=== PATIENT | female | born 1935 | race Caucasian/White ===

== ENCOUNTER 2017-05-23 17:01 | Inpatient (IN) | payer OTHER, MEDICAID ==
--- NOTE | 2017-05-23 17:22 | DR.GENAD ---
HPI - PCP Primary Care Physician: CHELSEY - HPI Comment HPI Comment: HISTORY BELOW. - Complaint/Symptoms Chief Complaint Doctors Comments: PATIENT HAVE NAUSEA, VOMITING AND GENERALIZE WEANESS AND SOB TIMES 3 DAYS. WORSE TODAY. NO FEVER. DENIES COUGH AND CONGESTION. Chief Complaint:: PT. C/O N/V, WEAKNESS, AND DEHYDRATION X 3 DAYS. PT. ALSO C/O SHORTNESS OF BREATH. DAUGHTER STATES PT. HAS NOT BEEN TAKING HER LASIX LIKE SHE IS SUPPOSED TO. - Nurses notes reviewed Nurses Notes Review: Yes - Source History Provided: Patient, Family Member - Mode of Arrival Mode of Arrival: Ambulatory - Timing Onset of Chief Complaint: 05/20/17 Came on: Suddenly - Duration Duration: Constant Duration: Days - Severity Severity: Moderate PMH - PMH Past Medical History: Yes Past Medical History: Alzheimers, CHF, Coronary Artery Disease, Dementia, Diabetes, GERD, Hypertension, Hypothyroidism Past Medical History Comment: BLEEDING ULCER Past Surgical History: Yes Surgical History: Hysterectomy, Other Past Surgical History Comment: BACK - Family History History of Family Medical Conditions: Yes Family Medical History: Diabetes Mellitus, Hypertension - Social History Does patient currently use any type of tobacco product: No Have you used tobacco products in the last 12 months: No Type of Tobacco Use: None Does any household member use tobacco: No Alcohol Use: None Do you use any recreational Drugs:: No Lives With: Family Lives Where: Home - infectious screening In the last 2 months have you had wt loss of >10#?: NO Have you had fever, night sweats or hemotysis?: No Have you traveled outside the country in the last 6 months?: No Isolation: Standard ROS - Review of Systems Constitutional: Weakness, Fatigue, Loss of Appetite. negative: Chills, Fever Eyes: No Symptoms Reported. negative: Eye Pain, Discharge ENTM: No Symptoms Reported. negative: Ear Pain, Nose Discharge, Nose Congestion , Throat Pain Respiratoy: Short of Breath. negative: Productive Cough, Non-Productive Cough, Wheezing, Hemoptysis Cardiovascular: Chest Pain. negative: Edema Gastrointestinal/Abdominal: Abdominal Pain, Nausea. negative: Constipation, Diarrhea, Vomiting Genitourinary: No Symptoms Reported. negative: Hematuria Neurological: No Symptoms Reported Musculoskeletal: Muscle Pain Integumentary: Dryness Hematologic/Lymphatic: Easy Bruising Endocrine: No Symptoms Reported All Other Systems: Reviewed and Negative PE - Vital Signs Vitals: Temperature 97.5 F Pulse Rate 100 Respiratory Rate 20 Blood Pressure [Left Arm] 136/54 Blood Pressure [Right Arm] 164/74 Blood Pressure 147/88 O2 Sat by Pulse Oximetry 95 - General Limitations: No Limitations General Appearance: Alert - Head Head Exam: Normal Inspection - Eyes Eye exam: Normal Appearance - ENT ENT Exam: Normal External Ear Exam TM/Canal Exam: Bilateral Normal Nose Exam: Normal Nose Exam Throat Exam: Normal Inspection - Neck Neck Exam: Normal Inspection - Chest Chest Inspection: Symmetric Chest Wall Rise - Respiratory Respiratory Exam: Normal Lung Sounds Bilat Respiratory Exam: Bilateral Clear to Auscultation - Cardiovascular Cardiovascular Exam: Regular Rate, Normal Rhythm, Normal Heart Sounds - Abdominal Exam Abdominal Exam: Normal Bowel Sounds, Soft. negative: Tenderness - Extremities Extremities Exam: negative: Calf Tenderness - Back Back Exam: Paraspinal Tenderness - Neurologic Neurological Exam: Alert - Psychiatric Psychiatric Exam: Normal Affect, Normal Mood - Skin Skin Exam: Erythema MDM - Additional Information Additional Information Obtained From: Family - Differential Diagnosis Differential Diagnosis: DEHYDRATION, ELECTOLYTE IMBALANCE, WEAKNESS, CHF Course - Treatment Treatment: SEE ORDERS - Consultation Consultation Comments: DIUSS PATIENT WITH DR. DELGADO, HE WILL ADMIT PATIENT. - Education/Counseling Education/Counseling: Patient Educated On: Diagnosis ROR - Labs Reviewed Laboratory Results Reviewed?: Yes Result Diagrams: 05/26/17 03:40 05/26/17 03:40 Laboratory: WBC 5.8 X10^3/uL (3.6-10.0) 05/23/17 17:25 RBC 4.70 X10^6/uL (3.5-5.4) 05/23/17 17:25 Hgb 13.8 g/dL (12.0-16.0) 05/23/17 17:25 Hct 39.4 % (36.0-47.0) 05/23/17 17:25 MCV 83.9 fL (80.0-100.0) 05/23/17 17:25 MCH 29.3 pg (27.0-34.0) 05/23/17 17:25 MCHC 34.9 g/dL (33.0-35.0) 05/23/17 17:25 RDW 14.2 % (11.6-16.5) 05/23/17 17:25 Plt Count 371 X10^3/uL (150.0-450.0) 05/23/17 17:25 MPV 7.8 fL (7.4-11.0) 05/23/17 17: Neut % 64.4 % (42.0-75.0) 05/23/17 17: Lymph % 26.2 % (21.0-51.0) 05/23/17 17:25 [place] % 8.5 % (0.0-13.0) 05/23/17 17: Eos % 0.5 % (0.9-2.9) L 05/23/17 17:25 Baso % 0.4 % (0.2-1.0) 05/23/17 17: Neut # 3.7 x10^3/uL (2.2-4.8) 05/23/17: Lymph # 1.5 X10^3/uL (1.3-2.9) 05/23/17 17: [place] # 0.5 x10^3/uL (0.3-0.8) 05/23/17 17: Eos # 0.0 x10^3/uL (0.0-0.2) 05/23/17 17: Baso # 0.0 X10^3/uL (0.0-0.1) 05/23/17 17: Absolute Nucleated RBC 0.1 /100WBC 05/23/17 17:25 Sodium 123 mmol/L (136-145) L* 05/23/17 17:25 Corrected Sodium 123 mmol/L (136-145) L 05/23/17 17:25 Potassium 4.0 mmol/L (3.5-5.1) 05/23/17 17:25 Chloride 88 mmol/L (98-107) L 05/23/17 17:25 Carbon Dioxide 22.1 mmol/L (21-32) 05/23/17 17:25 BUN 17 mg/dL (7-18) 05/23/17 17:25 Creatinine 1.03 mg/dL (0.55-1.02) H 05/23/17 17:25 Est GFR (MDRD) Af Amer > 60 (>60) 05/23/17 17:25 Est GFR (MDRD) Non-Af 55 (>60) L 05/23/17 17:25 Glucose 116 mg/dL (65-99) H 05/23/17 17:25 Calcium 8.4 mg/dL (8.5-10.1) L 05/23/17 17:25 Corrected Calcium TNP 05/23/17 17:25 Total Bilirubin 0.80 mg/dL (0.2-1.0) 05/23/17 17:25 AST 48 Units/L (15-37) H 05/23/17 17:25 ALT 51 Units/L (12-78) 05/23/17 17:25 Alkaline Phosphatase 89 Units/L (46-116) 05/23/17 17:25 Total Protein 8.0 g/dL (6.4-8.2) 05/23/17 17:25 Albumin 3.6 g/dL (3.4-5.0) 05/23/17 17:25 Globulin 4.4 g/dL (2.5-4.5) 05/23/17 17:25 Albumin/Globulin Ratio 0.8 Ratio (1.1-2.1) L 05/23/17 17:25 - XRAY XRAY Interpreted by: Radiologist XRAY Findings: REPORT NOTED. - Diagnosis Discharge Problem: Hyponatremia, Weakened patient, Dehydration CHF (congestive heart failure) Qualifiers: Congestive heart failure type: combined Congestive heart failure chronicity: acute on chronic Qualified Code(s): I50.43 - Acute on chronic combined systolic (congestive) and diastolic (congestive) heart failure - Discharge Plan Disposition: ADMITTED INPATIENT Condition: Stable - Follow ups/Referrals - Instructions
[2017-05-23] MEDS: NS 1000 ML 1,000 ML IV SCH (17:31)
[2017-05-23] MEDS ORDERED: ZOFRAN INJ 4 MG VIAL IVP ONE (17:32)
[2017-05-23 17:33] LABS: BASOPHILS % (AUTO) 0.4 % (0.2-1.0); EOSINOPHILS % (AUTO) 0.5 % (0.9-2.9); HEMATOCRIT 39.4 % (36.0-47.0); HEMOGLOBIN 13.8 g/dL (12.0-16.0); LYMPHOCYTES # (AUTO) 1.5 X10^3/uL (1.3-2.9); LYMPHOCYTES % (AUTO) 26.2 % (21.0-51.0); MEAN CORPUSCULAR HEMOGLOBIN 29.3 pg (27.0-34.0); MEAN CORPUSCULAR HGB CONC 34.9 g/dL (33.0-35.0); MEAN CORPUSCULAR VOLUME 83.9 fL (80.0-100.0); MEAN PLATELET VOLUME 7.8 fL (7.4-11.0); MONOCYTES # (AUTO) 0.5 x10^3/uL (0.3-0.8); MONOCYTES % (AUTO) 8.5 % (0.0-13.0); NEUTROPHILS # (AUTO) 3.7 x10^3/uL (2.2-4.8); NEUTROPHILS % (AUTO) 64.4 % (42.0-75.0); PLATELET COUNT 371 X10^3/uL (150.0-450.0); RED CELL DISTRIBUTION WIDTH 14.2 % (11.6-16.5); WHITE BLOOD COUNT 5.8 X10^3/uL (3.6-10.0)
[2017-05-23] MEDS ORDERED: ZOFRAN INJ 4 MG VIAL ONE (17:33)
[2017-05-23 17:42] LABS: BLOOD UREA NITROGEN 17 mg/dL (7-18); CALCIUM 8.4 mg/dL (8.5-10.1); CARBON DIOXIDE 22.1 mmol/L (21-32); CHLORIDE 88 mmol/L (98-107); COR NA(FOR HYPERGLY) 123 mmol/L (136-145); CREATININE 1.03 mg/dL (0.55-1.02); GLUCOSE 116 mg/dL (65-99); eGFR BLACK RACES > 60 (>60); eGFR NON BLACK RACES 55 (>60)
[2017-05-23 17:46] LABS: ALANINE AMINOTRANSFERASE 51 Units/L (12-78); ALBUMIN 3.6 g/dL (3.4-5.0); ALKALINE PHOSPHATASE 89 Units/L (46-116); ASPARTATE AMINO TRANSFERASE 48 Units/L (15-37)
[2017-05-23 17:48] LABS: SODIUM 123 mmol/L (136-145)
--- NOTE | 2017-05-23 19:45 | RAD ---
HISTORY: Weakness Study: Single view of the chest. Comparison: None. Findings: Cardiomegaly with pulmonary edema and small right pleural effusion. No focal consolidations. Osseous structures demonstrate no acute abnormality. IMPRESSION: 1. Cardiomegaly with pulmonary edema and small right pleural effusion. Reported By:
[2017-05-23] MEDS ORDERED: ZOFRAN INJ 4 MG VIAL IVP PRN (20:48)
[2017-05-23] MEDS: PEPCID 20 MG IV PREMIX* 20 MG/50 ML BAG IV SCH (22:54)
[2017-05-23 23:12] LABS: CKMB % 2.3 % (<4); CREATINE KINASE MB 1.4 ng/mL (0-4.0); TROPONIN I 0.06 ng/mL (0-1.5)
[2017-05-24 05:53] LABS: ALANINE AMINOTRANSFERASE 38 Units/L (12-78); ALKALINE PHOSPHATASE 70 Units/L (46-116); ASPARTATE AMINO TRANSFERASE 37 Units/L (15-37); BLOOD UREA NITROGEN 16 mg/dL (7-18); CALCIUM 7.9 mg/dL (8.5-10.1); CARBON DIOXIDE 21.8 mmol/L (21-32); CHLORIDE 93 mmol/L (98-107); COR CA(FOR HYPOALB) 8.7 mg/dL (8.5-10.1); CREATININE 0.98 mg/dL (0.55-1.02); GLUCOSE 86 mg/dL (65-99); SODIUM 126 mmol/L (136-145); TOTAL PROTEIN 6.8 g/dL (6.4-8.2); eGFR BLACK RACES > 60 (>60); eGFR NON BLACK RACES 58 (>60)
[2017-05-24] MEDS: NS 1000 ML 1,000 ML IV SCH ×3 (06:04→21:25)
[2017-05-24 06:18] LABS: BASOPHILS % (AUTO) 0.4 % (0.2-1.0); EOSINOPHILS % (AUTO) 0.9 % (0.9-2.9); HEMATOCRIT 35.5 % (36.0-47.0); HEMOGLOBIN 12.2 g/dL (12.0-16.0); LYMPHOCYTES # (AUTO) 1.5 X10^3/uL (1.3-2.9); LYMPHOCYTES % (AUTO) 26.9 % (21.0-51.0); MEAN CORPUSCULAR HEMOGLOBIN 29.1 pg (27.0-34.0); MEAN CORPUSCULAR HGB CONC 34.5 g/dL (33.0-35.0); MEAN CORPUSCULAR VOLUME 84.5 fL (80.0-100.0); MEAN PLATELET VOLUME 8.7 fL (7.4-11.0); MONOCYTES # (AUTO) 0.5 x10^3/uL (0.3-0.8); MONOCYTES % (AUTO) 8.6 % (0.0-13.0); NEUTROPHILS # (AUTO) 3.5 x10^3/uL (2.2-4.8); NEUTROPHILS % (AUTO) 63.2 % (42.0-75.0); PLATELET COUNT 300 X10^3/uL (150.0-450.0); RED BLOOD COUNT 4.21 X10^6/uL (3.5-5.4); RED CELL DISTRIBUTION WIDTH 14.5 % (11.6-16.5); WHITE BLOOD COUNT 5.5 X10^3/uL (3.6-10.0)
[2017-05-24 06:30] LABS: CKMB % 2.3 % (<4); CREATINE KINASE MB 1.5 ng/mL (0-4.0); TROPONIN I 0.06 ng/mL (0-1.5)
[2017-05-24] MEDS: PEPCID 20 MG IV PREMIX* 20 MG/50 ML BAG IV SCH (08:41)
[2017-05-24] MEDS ORDERED: ALPRAZOLAM 0.25 MG PO PRN (11:46)
[2017-05-24] MEDS ORDERED: LASIX PO SCH (12:00)
[2017-05-24] MEDS: LASIX IVP SCH ×2 (14:56→21:24)
[2017-05-24] MEDS: ECOTRIN TAB 325 MG PO SCH (14:56)
[2017-05-24] MEDS: LOPRESSOR TAB 25 MG PO SCH ×2 (14:56→21:24)
[2017-05-24] MEDS ORDERED: ULTRAM PO PRN (19:37)
[2017-05-24] MEDS: XANAX PO PRN (21:23)
[2017-05-25] MEDS: NS 1000 ML 1,000 ML IV SCH (05:59)
[2017-05-25 06:13] LABS: BASOPHILS % (AUTO) 0.3 % (0.2-1.0); EOSINOPHILS % (AUTO) 1.1 % (0.9-2.9); HEMATOCRIT 36.7 % (36.0-47.0); HEMOGLOBIN 12.6 g/dL (12.0-16.0); LYMPHOCYTES # (AUTO) 1.2 X10^3/uL (1.3-2.9); MEAN CORPUSCULAR HEMOGLOBIN 29.1 pg (27.0-34.0); MEAN CORPUSCULAR HGB CONC 34.2 g/dL (33.0-35.0); MEAN PLATELET VOLUME 8.5 fL (7.4-11.0); MONOCYTES # (AUTO) 0.4 x10^3/uL (0.3-0.8); MONOCYTES % (AUTO) 10.1 % (0.0-13.0); NEUTROPHILS # (AUTO) 2.7 x10^3/uL (2.2-4.8); NEUTROPHILS % (AUTO) 61.5 % (42.0-75.0); PLATELET COUNT 292 X10^3/uL (150.0-450.0); RED BLOOD COUNT 4.31 X10^6/uL (3.5-5.4); RED CELL DISTRIBUTION WIDTH 14.2 % (11.6-16.5); WHITE BLOOD COUNT 4.4 X10^3/uL (3.6-10.0)
[2017-05-25 06:37] LABS: ALANINE AMINOTRANSFERASE 38 Units/L (12-78); ALBUMIN 3.1 g/dL (3.4-5.0); ALKALINE PHOSPHATASE 73 Units/L (46-116); ASPARTATE AMINO TRANSFERASE 33 Units/L (15-37); BLOOD UREA NITROGEN 15 mg/dL (7-18); CALCIUM 7.9 mg/dL (8.5-10.1); CARBON DIOXIDE 24.9 mmol/L (21-32); CHLORIDE 99 mmol/L (98-107); COR CA(FOR HYPOALB) 8.6 mg/dL (8.5-10.1); CREATININE 1.05 mg/dL (0.55-1.02); GLUCOSE 91 mg/dL (65-99); SODIUM 134 mmol/L (136-145); TOTAL PROTEIN 6.9 g/dL (6.4-8.2); eGFR BLACK RACES > 60 (>60); eGFR NON BLACK RACES 53 (>60)
[2017-05-25 08:31] VITALS: BMI 30.6
[2017-05-25] MEDS: LOPRESSOR TAB 25 MG PO SCH ×2 (08:46→20:35)
[2017-05-25] MEDS: ECOTRIN TAB 325 MG PO SCH (08:46)
[2017-05-25] MEDS: LASIX IVP SCH ×2 (08:47→20:34)
[2017-05-25] MEDS: PEPCID 20 MG IV PREMIX* 20 MG/50 ML BAG IV SCH (08:47)
--- NOTE | 2017-05-25 12:16 | PCM.PROG ---
Progress Note - Progress Note for Day of Date: 05/25/17 - Subjective Subjective: Patient is an 81yo female patient of ours who was admitted for hyponatremia, dehydration, generalized weakness, and CHF. Upon rounds, patient is lying in bed with eyes open. Patient complains of weakness upon standing and shortness of breath. Wheezing noted on auscultation. Patients family is at bedside. Family states that prior to admission, patient had nausea, vomiting, and confusion. Vitals this am 97.6, 96, 20, 92%, 127/71. Labs within normal limits with exception of SODIUM 134, CREATININE 1.05, GFR 53, CALCIUM 7.9, ALBUMIN 3.1. We will discontinue Lasix and heplock fluids. We will also check an ECHO and repeat labs and xray in am. - Past Medical Family Social History Allergies: Allergies acetaminophen [From Darvocet-N] Allergy (Verified 05/24/17 11:56) codeine Allergy (Verified 05/24/17 11:56) hydrocodone [From Lorcet (hydrocodone)] Allergy (Verified 05/24/17 11:56) oxycodone [From Percocet] Allergy (Verified 05/24/17 11:56) propoxyphene [From Darvocet-N] Allergy (Verified 05/24/17 11:56) - Review of Systems ROS: No change since H&P - Vital Signs and I&O's Vital Signs: Temperature 97.6 F Pulse Rate [Left Brachial] 96 Pulse Rate [Left Radial] 71 Respiratory Rate 20 Blood Pressure [Left Arm] 127/71 O2 Sat by Pulse Oximetry 92 Intake and Output: Intake & Output 05/23/17 05/24/17 05/25/17 05/26/17 11:59 11:59 11:59 11:59 Intake Total 1500 800 Output Total 200 2400 Balance 1300 -1600 - Physical Exam Oriented: Normal. negative: Time, Person, Place, Not Oriented, Unable to test, Other Eyes: Normal. negative: Blurred Vision, Diplopia, Discharge, Pain, Redness, Photophobia, Other Ear: Normal. negative: Right, Left, Swelling, Ecchymosis, Hemotypanum, Abrasion , Laceration Nose: Normal Throat: Normal Respiratory: Wheezes Cardiovascular: Normal : Normal. negative: Dysuria, Hematuria, Frequency, Discharge, Testicular Pain , Bleeding, , Other Auscultation: Bowel Sounds: Normal. negative: Bruit, Absent, Increased, Decreased, High Pitched, Other Tenderness: Normal. negative: Diffuse, RUQ, RLQ, LUQ, LLQ, Epigastric, Periumbilical, Suprapubic, Mild, Moderate, Severe, Rebound, Guarding, Rigidity, Other Skin: Normal. negative: Decreased Turgur, Rash, Papular, Macular, Maculopapular , Vesicular, Pustular, Petechial, Red, Tender, Hot, Diaphoresis, Wound, Bruising , Ecchymosis, Other Musculoskeletal: Instability Psychiatric: Normal. negative: Anxiety, Depression, Agitation, Other Mood Description: Calm. negative: Angry, Apathetic, Depressed, Fearful, Flat, Happy, Hostile, Sad, Suspicious, Withdrawn, Anxious, Appropriate, Labile Affect: Normal. negative: Angry, Anxious, Depressed, Flat, Hysterical, Quiet, Violent Speech Pattern: Clear, Appropriate - Laboratory and Diagnostics Result Diagrams: 05/25/17 03:37 05/25/17 03:37 Labs: Laboratory WBC 4.4 X10^3/uL (3.6-10.0) 05/25/17 03:37 RBC 4.31 X10^6/uL (3.5-5.4) 05/25/17 03:37 Hgb 12.6 g/dL (12.0-16.0) 05/25/17 03:37 Hct 36.7 % (36.0-47.0) 05/25/17 03:37 MCV 85.0 fL (80.0-100.0) 05/25/17 03:37 MCH 29.1 pg (27.0-34.0) 05/25/17 03:37 MCHC 34.2 g/dL (33.0-35.0) 05/25/17 03:37 RDW 14.2 % (11.6-16.5) 05/25/17 03:37 Plt Count 292 X10^3/uL (150.0-450.0) 05/25/17 03:37 MPV 8.5 fL (7.4-11.0) 05/25/17 03:37 Neut % 61.5 % (42.0-75.0) 05/25/17 03:37 Lymph % 27.0 % (21.0-51.0) 05/25/17 03:37 [place] % 10.1 % (0.0-13.0) 05/25/17 03:37 Eos % 1.1 % (0.9-2.9) 05/25/17 03:37 Baso % 0.3 % (0.2-1.0) 05/25/17 03:37 Neut # 2.7 x10^3/uL (2.2-4.8) 05/25/17 03:37 Lymph # 1.2 X10^3/uL (1.3-2.9) L 05/25/17 03:37 [place] # 0.4 x10^3/uL (0.3-0.8) 05/25/17 03:37 Eos # 0.0 x10^3/uL (0.0-0.2) 05/25/17 03:37 Baso # 0.0 X10^3/uL (0.0-0.1) 05/25/17 03:37 Absolute Nucleated RBC 0.6 /100WBC 05/25/17 03:37 Sodium 134 mmol/L (136-145) L 05/25/17 03:37 Corrected Sodium TNP 05/25/17 03:37 Potassium 3.6 mmol/L (3.5-5.1) 05/25/17 03:37 Chloride 99 mmol/L (98-107) 05/25/17 03:37 Carbon Dioxide 24.9 mmol/L (21-32) 05/25/17 03:37 BUN 15 mg/dL (7-18) 05/25/17 03:37 Creatinine 1.05 mg/dL (0.55-1.02) H 05/25/17 03:37 Est GFR (MDRD) Af Amer > 60 (>60) 05/25/17 03:37 Est GFR (MDRD) Non-Af 53 (>60) L 05/25/17 03:37 Glucose 91 mg/dL (65-99) 05/25/17 03:37 Calcium 7.9 mg/dL (8.5-10.1) L 05/25/17 03:37 Corrected Calcium 8.6 mg/dL (8.5-10.1) 05/25/17 03:37 Total Bilirubin 0.50 mg/dL (0.2-1.0) 05/25/17 03:37 AST 33 Units/L (15-37) 05/25/17 03:37 ALT 38 Units/L (12-78) 05/25/17 03:37 Alkaline Phosphatase 73 Units/L (46-116) 05/25/17 03:37 Creatine Kinase 64 Units/L (26-192) 05/24/17 04:00 CK-MB (CK-2) 1.5 ng/mL (0-4.0) 05/24/17 04:00 CK/CKMB % Calc 2.3 % (<4) 05/24/17 04:00 Troponin I 0.06 ng/mL (0-1.5) 05/24/17 04:00 Total Protein 6.9 g/dL (6.4-8.2) 05/25/17 03:37 Albumin 3.1 g/dL (3.4-5.0) L 05/25/17 03:37 Globulin 3.8 g/dL (2.5-4.5) 05/25/17 03:37 Albumin/Globulin Ratio 0.8 Ratio (1.1-2.1) L 05/25/17 03:37 - Plan (1) Hyponatremia Status: Acute Plan: CHECK LABS IN AM, CONTINUE TO MONITOR (2) CHF (congestive heart failure) Status: Acute Qualifiers: Congestive heart failure type: unspecified congestive heart failure type Congestive heart failure chronicity: unspecified congestive heart failure chronicity Qualified Code(s): I50.9 - Heart failure, unspecified Plan: CHECK LABS, CHEST XRAY, ECHO, CONTINUE TO MONITOR, HEPLOCK FLUIDS (3) Weakened patient Status: Acute Plan: CONTINUE TO MONITOR (4) Esophageal reflux Status: Chronic Qualifiers: Esophagitis presence: E Plan: CONTINUE PEPCID, CONTINUE TO MONITOR (5) Essential hypertension, benign Status: Chronic Plan: CONTINUE LOPRESSOR, CONTINUE TO MONITOR (6) LAKESHA (generalized anxiety disorder) Status: Chronic Plan: CONTINUE ALPRAZOLAM, CONTINUE TO MONITOR
[2017-05-25] MEDS: XANAX PO PRN (20:35)
[2017-05-26 05:48] LABS: BASOPHILS % (AUTO) 0.8 % (0.2-1.0); EOSINOPHILS # (AUTO) 0.1 x10^3/uL (0.0-0.2); EOSINOPHILS % (AUTO) 2.1 % (0.9-2.9); HEMATOCRIT 37.4 % (36.0-47.0); HEMOGLOBIN 12.7 g/dL (12.0-16.0); LYMPHOCYTES # (AUTO) 1.6 X10^3/uL (1.3-2.9); LYMPHOCYTES % (AUTO) 34.6 % (21.0-51.0); MEAN CORPUSCULAR HEMOGLOBIN 29.1 pg (27.0-34.0); MEAN CORPUSCULAR VOLUME 85.6 fL (80.0-100.0); MEAN PLATELET VOLUME 8.3 fL (7.4-11.0); MONOCYTES # (AUTO) 0.4 x10^3/uL (0.3-0.8); MONOCYTES % (AUTO) 9.5 % (0.0-13.0); NEUTROPHILS # (AUTO) 2.5 x10^3/uL (2.2-4.8); PLATELET COUNT 315 X10^3/uL (150.0-450.0); RED BLOOD COUNT 4.36 X10^6/uL (3.5-5.4); RED CELL DISTRIBUTION WIDTH 14.5 % (11.6-16.5); WHITE BLOOD COUNT 4.7 X10^3/uL (3.6-10.0)
[2017-05-26 06:01] LABS: ALANINE AMINOTRANSFERASE 45 Units/L (12-78); ALBUMIN 3.1 g/dL (3.4-5.0); ALKALINE PHOSPHATASE 73 Units/L (46-116); ASPARTATE AMINO TRANSFERASE 41 Units/L (15-37); BLOOD UREA NITROGEN 17 mg/dL (7-18); CALCIUM 7.9 mg/dL (8.5-10.1); CARBON DIOXIDE 26.3 mmol/L (21-32); CHLORIDE 99 mmol/L (98-107); COR CA(FOR HYPOALB) 8.6 mg/dL (8.5-10.1); CREATININE 1.16 mg/dL (0.55-1.02); GLUCOSE 101 mg/dL (65-99); SODIUM 135 mmol/L (136-145); TOTAL PROTEIN 7.1 g/dL (6.4-8.2); eGFR BLACK RACES 58 (>60); eGFR NON BLACK RACES 48 (>60)
[2017-05-26] MEDS ORDERED: POTASSIUM CHLORIDE LIQ 20 MEQ UDC PO PRN (06:25)
[2017-05-26] MEDS ORDERED: K-RIDER 10 MEQ/NS 100 ML 10 MEQ/100 ML BAG IV PRN (06:25)
[2017-05-26] MEDS ORDERED: K-LYTE EFFERVESCENT PO PRN (06:25)
[2017-05-26] MEDS ORDERED: K-DUR TAB 20 MEQ PO PRN (06:25)
--- NOTE | 2017-05-26 06:42 | RAD ---
HISTORY: CHF, shortness of breath Study: Single-view chest, done portably Comparison: May 23, 2017 Findings: The trachea is midline. There is cardiomegaly with pulmonary vascular congestion and signs of CHF. T hese findings have increased slightly compared to the prior study. Also increased is atelectasis, in filtrate and or pleural fluid in the right lung base. Osseous structures are intact. IMPRESSION: Increasing CHF with increasing atelectasis, infiltrate or pleural fluid in the right lung base. Reported By:
[2017-05-26] MEDS: ECOTRIN TAB 325 MG PO SCH (08:31)
[2017-05-26] MEDS: LOPRESSOR TAB 25 MG PO SCH (08:31)
[2017-05-26 13:00] VITALS: BP 112/60
--- NOTE | 2017-05-26 14:48 | DR.CARTERD ---
- Discharge Summary for: Discharge Summary for Date of:: 05/26/17 - Admission Date Date of Admission: 05/23/17 - Admission Diagnoses Admission Diagnosis: (1) Hyponatremia (2) CHF (congestive heart failure) (3) Weakened patient (4) Esophageal reflux (5) Essential hypertension, benign (6) LAKESHA (generalized anxiety disorder) - Discharge Date Discharge Date: 05/26/17 - Discharge Diagnoses Discharge Diagnosis: (1) Hyponatremia (2) CHF (congestive heart failure) (3) Weakened patient (4) Esophageal reflux (5) Essential hypertension, benign (6) LAKESHA (generalized anxiety disorder) - Hospital Course Hospital Course: IS AN 81 YEAR OLD PATIENT OF OURS WHO PRESENTED TO THE ER WITH COMPLAINTS OF GENERLIZED WEAKNESS, SHORTNESS OF BREATH, AND NAUSEA/VOMITING. PATIENT STATED THAT CONDITION HAD PROGRESSIVELY WORSENED 2-3 DAYS PRIOR TO PRESENTING TO ER. PATIENT WAS EXAMINED IN ER AND LABS AND X-RAYS WERE OBTAINED. LABS REPORTED SODIUM 123, CHLORIDE 88, CREATININE 1.03, GFR 55. CHEST XRAY REPORTED PULMONARY EDEMA AND SMALL RIGHT PLEURAL EFFUSION. PATIENT WAS ADMITTED FOR FURTHER EVALUATION AND TREATMENT. WE STARTED PATIENT ON IVF, ZOFRAN, AND CONTINUED PATIENTS CURRENT HOME MEDICATIONS. OVER COURSE OF STAY, PATIENTS SODIUM IMPROVED FOR 123 TO 135 BY DISCHARGE. CREATININE IMPROVED FROM 1.03 TO 0.98, GFR FROM 55 TO 48. CARDIAC PROFILE AND EKGS WERE ALL REPORTED WNL. PATIENT STATED THAT SHE FELT MUCH BETTER OVERALL AND WAS READY TO BE DISCHARGED HOME. PATIENT EXPRESSED SOME SHORTNESS OF BREATH ON EXERTION AND WISHED TO BE EVALUATED FOR HOME OXYGEN THERAPY. WE PLANNED FOR DISHCARGE. WE WILL DISCONTINUE PATIENTS HOME MEDICATION LASIX AND WILL START ON DYAZIDE 1 CAPSULE DAILY AND HAVE PATIENT FOLLOW UP IN OFFICE NEXT WEEK. WE PLANNED FOR DISCHARGE. INSTRUCTIONS FOR FOLLOW-UP AND MEDICATION GIVEN TO PATIENT AND DAUGHTER. BOTH VERBALIZED UNDERSTANDING. PATIENT DISCHARGED HOME WITH FAMILY IN STABLE CONDITION. - Discharge Medications Discharge Medications: Aspirin EC [ECOTRIN 325 MG *] 325 mg PO DAILY 05/23/17 [History] Triamterene & Hydrochlorothiaz [Maxzide 37.5/25 mg] 1 cap PO QAM #30 cap [Rx]
== END 2017-05-26 13:45 | disposition home or self-care (01) | DRG 641 ==
LOC: ER 17:12 → MED/SURG 18:53
PROVIDERS: ADMIT Internal Medicine; ATTEND Internal Medicine
DX: E87.1 Hypo-osmolality and hyponatremia (principal); I50.9 Heart failure, unspecified; E86.0 Dehydration; R53.1 Weakness; R06.02 Shortness of breath; K21.9 Gastro-esophageal reflux disease without esophagitis; I10 Essential (primary) hypertension; F41.8 Other specified anxiety disorders; M62.81 Muscle weakness (generalized)
CPT/HCPCS: 36415; 71010; 80053; 82550; 82553; 84484; 85025; 93005; 93306; 94760; 96365; 96367; 96374; 99221; 99231; 99284; A4222; S0028; J1940; J2405

== ENCOUNTER 2017-06-14 13:24 | Inpatient (IN) | payer OTHER, MEDICAID ==
[2017-06-14] MEDS: NS 1000 ML 1,000 ML IV SCH (16:45)
[2017-06-14 17:07] LABS: EOSINOPHILS % (AUTO) 0.6 % (0.9-2.9); HEMOGLOBIN 13.2 g/dL (12.0-16.0); LYMPHOCYTES # (AUTO) 1.1 X10^3/uL (1.3-2.9); LYMPHOCYTES % (AUTO) 26.6 % (21.0-51.0); MEAN CORPUSCULAR HEMOGLOBIN 28.6 pg (27.0-34.0); MEAN CORPUSCULAR HGB CONC 34.7 g/dL (33.0-35.0); MEAN CORPUSCULAR VOLUME 82.5 fL (80.0-100.0); MEAN PLATELET VOLUME 8.6 fL (7.4-11.0); MONOCYTES # (AUTO) 0.4 x10^3/uL (0.3-0.8); MONOCYTES % (AUTO) 8.8 % (0.0-13.0); NEUTROPHILS # (AUTO) 2.6 x10^3/uL (2.2-4.8); PLATELET COUNT 303 X10^3/uL (150.0-450.0); RED BLOOD COUNT 4.61 X10^6/uL (3.5-5.4); RED CELL DISTRIBUTION WIDTH 14.3 % (11.6-16.5); WHITE BLOOD COUNT 4.2 X10^3/uL (3.6-10.0)
[2017-06-14 17:34] LABS: ALANINE AMINOTRANSFERASE 43 Units/L (12-78); ALBUMIN 3.4 g/dL (3.4-5.0); ALKALINE PHOSPHATASE 86 Units/L (46-116); ASPARTATE AMINO TRANSFERASE 51 Units/L (15-37); BLOOD UREA NITROGEN 24 mg/dL (7-18); CALCIUM 8.3 mg/dL (8.5-10.1); CARBON DIOXIDE 27.4 mmol/L (21-32); CHLORIDE 85 mmol/L (98-107); CREATININE 1.17 mg/dL (0.55-1.02); GLUCOSE 99 mg/dL (65-99); TOTAL PROTEIN 7.7 g/dL (6.4-8.2); eGFR BLACK RACES 57 (>60); eGFR NON BLACK RACES 47 (>60)
[2017-06-14 17:36] LABS: SODIUM 119 mmol/L (136-145)
[2017-06-14 17:49] VITALS: BMI 28.0
--- NOTE | 2017-06-14 18:17 | DR.UPDATE ---
H&P Update History and Physical Update: WAS SEEN IN THE OFFICE TODAY FOR A FOLLOW-UP ON LABS. SHE WAS NOTED WITH COMPLAINTS OF HEADACHE, WEAKNESS, AND ALTERED MENTAL STATUS. SODIUM LEVEL WAS REPORTED AT A CRITICAL LEVEL OF 120. WE ADMITTED PATIENT FOR FURTHER TREATMENT AND EVALUATION. A H&P WAS COMPLETED PRIOR TO ADMISSION. SHE HAS BEEN SEEN AND EXAMINED WITH NO CHANGES NOTED. Changes noted: NO Yes with the following:
[2017-06-14] MEDS: XANAX PO PRN (23:03)
[2017-06-14 23:21] LABS: BILIRUBIN,URINE NEGATIVE (NEGATIVE); BLOOD/HEMOGLOBIN,URINE 1+ (NEGATIVE); GLUCOSE, URINE NEGATIVE (NEGATIVE); KETONES,URINE NEGATIVE (NEGATIVE); LEUKOCYTE ESTERASE ,URINE 1+ (NEGATIVE); NITRITES,URINE POSITIVE (NEGATIVE); PH,URINE 6.5 (5.0 - 8.0); PROTEIN,URINE 2+ (NEGATIVE); UROBILINOGEN,URINE NORMAL (NORMAL)
[2017-06-14 23:27] LABS: AMORPHOUS SEDIMENT,UR 1+ /HPF (NEGATIVE); APPEARANCE,URINE HAZY (CLEAR); BACTERIA,URINE 3+ /HPF (NEGATIVE); COLOR,URINE YELLOW (YELLOW); SQUAMOUS EPITHELIAL CELL,UR FEW /HPF (NEGATIVE)
[2017-06-15 06:49] LABS: BASOPHILS % (AUTO) 0.8 % (0.2-1.0); EOSINOPHILS % (AUTO) 0.6 % (0.9-2.9); HEMATOCRIT 39.1 % (36.0-47.0); HEMOGLOBIN 13.4 g/dL (12.0-16.0); LYMPHOCYTES # (AUTO) 1.1 X10^3/uL (1.3-2.9); MEAN CORPUSCULAR HEMOGLOBIN 28.2 pg (27.0-34.0); MEAN CORPUSCULAR HGB CONC 34.2 g/dL (33.0-35.0); MEAN CORPUSCULAR VOLUME 82.5 fL (80.0-100.0); MEAN PLATELET VOLUME 8.9 fL (7.4-11.0); MONOCYTES # (AUTO) 0.4 x10^3/uL (0.3-0.8); MONOCYTES % (AUTO) 10.4 % (0.0-13.0); NEUTROPHILS # (AUTO) 2.2 x10^3/uL (2.2-4.8); NEUTROPHILS % (AUTO) 59.2 % (42.0-75.0); PLATELET COUNT 242 X10^3/uL (150.0-450.0); RED BLOOD COUNT 4.74 X10^6/uL (3.5-5.4); RED CELL DISTRIBUTION WIDTH 14.3 % (11.6-16.5); WHITE BLOOD COUNT 3.6 X10^3/uL (3.6-10.0)
[2017-06-15 06:50] LABS: ALANINE AMINOTRANSFERASE 39 Units/L (12-78); ALBUMIN 3.1 g/dL (3.4-5.0); ALKALINE PHOSPHATASE 79 Units/L (46-116); ASPARTATE AMINO TRANSFERASE 44 Units/L (15-37); BLOOD UREA NITROGEN 18 mg/dL (7-18); CARBON DIOXIDE 28.4 mmol/L (21-32); CHLORIDE 89 mmol/L (98-107); COR CA(FOR HYPOALB) 8.7 mg/dL (8.5-10.1); CREATININE 0.96 mg/dL (0.55-1.02); GLUCOSE 78 mg/dL (65-99); eGFR BLACK RACES > 60 (>60); eGFR NON BLACK RACES 59 (>60)
[2017-06-15 06:56] LABS: SODIUM 125 mmol/L (136-145)
[2017-06-15] MEDS: NS 1000 ML 1,000 ML IV SCH ×2 (06:57→20:25)
[2017-06-15] MEDS ORDERED: ZOFRAN INJ 4 MG VIAL IVP PRN (09:04)
[2017-06-15] MEDS ORDERED: PATIENT'S HOME MEDICATION (Ondansetron [Zofran Odt 8 Mg] 1 TAB) SL PRN (14:55)
[2017-06-15] MEDS: LOPRESSOR TAB 25 MG PO SCH ×2 (15:20→20:26)
[2017-06-15] MEDS: ECOTRIN TAB 325 MG PO SCH (15:20)
[2017-06-15] MEDS: MEGACE PO SCH ×2 (15:20→20:26)
[2017-06-15] MEDS: ROCEPHIN VIAL 1 GM 1 GM in NS 50 ML IV + SPIKE MINIBAG* 50 ML IV SCH (15:24)
--- NOTE | 2017-06-15 15:39 | PCM.PROG ---
Progress Note - Progress Note for Day of Date: 06/15/17 - Subjective Subjective: WAS A DIRECT ADMISSION FROM OUR OFFICE FOR HYPONATREMIA. SHE IS ALERT AND ORIENTED, IN BED, ON MORNING ROUNDS. SHE IS NOTED WITH COMPLAINTS OF WEAKNESS AND FATIGUE. LUNGS ARE CLEAR ON AUSCULTATION. BOWEL SOUNDS NORMAL IN ALL QUADRANTS. VITALS THIS AM ARE 98.2-80-16-99%-132/51. CBC WNL. CMP WNL EXCEPT SODIUM 125, CHLORIDE 89, CALCIUM 8.0, AST 44, ALT 39, ALBUMIN 3.1. WE WILL CONTINUE WITH CURRENT PLAN OF CARE. WE WILL REVIEW HOME MEDICATIONS, CHECK CBC, CHECK CMP, AND FOLLOW UP WITH PATIENT IN AM. - Past Medical Family Social History Past Med/Fam/Surg Hx: No changes since H&P Allergies: Allergies acetaminophen [From Darvocet-N] Allergy (Verified 05/24/17 11:56) codeine Allergy (Verified 05/24/17 11:56) hydrocodone [From Lorcet (hydrocodone)] Allergy (Verified 05/24/17 11:56) oxycodone [From Percocet] Allergy (Verified 05/24/17 11:56) propoxyphene [From Darvocet-N] Allergy (Verified 05/24/17 11:56) - Review of Systems ROS: No change since H&P - Vital Signs and I&O's Vital Signs: Temperature 97.2 F Pulse Rate [Right Brachial] 82 Respiratory Rate 22 Blood Pressure [Left Arm] 113/51 Blood Pressure [Right Arm] 125/56 Blood Pressure 112/60 O2 Sat by Pulse Oximetry 98 Intake and Output: Intake & Output 06/13/17 06/14/17 06/15/17 06/16/17 11:59 11:59 11:59 11:59 Intake Total 619 1020 Output Total 850 750 Balance -231 270 - Physical Exam Oriented: Normal. negative: Time, Person, Place, Not Oriented, Unable to test, Other Eyes: Normal. negative: Blurred Vision, Diplopia, Discharge, Pain, Redness, Photophobia, Other Ear: Normal. negative: Right, Left, Swelling, Ecchymosis, Hemotypanum, Abrasion , Laceration Nose: Normal. negative: Injected, Discharge, Blood, Other Throat: Normal. negative: Tonsillar Hypertrophy, Red, Exudate, Dry, Other Respiratory: Normal. negative: Right, Left, Generalized, Superior, Inferior, Diminished, Wheezes, Rales, Rhonchi, OTHER Cardiovascular: Normal. negative: Tachycardia, Bradycardia, Irregular, S3, S4, Systolic, Diastolic, Murmur, Edema, Other : Normal. negative: Dysuria, Hematuria, Frequency, Discharge, Testicular Pain , Bleeding, , Other Auscultation: Bowel Sounds: Normal. negative: Bruit, Absent, Increased, Decreased, High Pitched, Other Palpation: Normal Tenderness: Normal. negative: Diffuse, RUQ, RLQ, LUQ, LLQ, Epigastric, Periumbilical, Suprapubic, Mild, Moderate, Severe, Rebound, Guarding, Rigidity, Other Skin: Normal. negative: Decreased Turgur, Rash, Papular, Macular, Maculopapular , Vesicular, Pustular, Petechial, Red, Tender, Hot, Diaphoresis, Wound, Bruising , Ecchymosis, Other Musculoskeletal: Normal. negative: Right, Left, Shoulder, Clavicle, Arm, Elbow , Forearm, Wrist, Hand, Hip, Thigh, Knee, Leg, Ankle, Foot, Back:Thoracic, Back: Lumbar, Back:Midline, Back:Paraspinous, Pelvis, Swelling, Tender, Deformity, Pulse Deficit, Motor Deficit, Sensory Deficit, Instability, Crepitance Psychiatric: Normal. negative: Anxiety, Depression, Agitation, Other Mood Description: Calm. negative: Angry, Apathetic, Depressed, Fearful, Flat, Happy, Hostile, Sad, Suspicious, Withdrawn, Anxious, Appropriate, Labile Affect: Normal. negative: Angry, Anxious, Depressed, Flat, Hysterical, Quiet, Violent Speech Pattern: Clear, Appropriate. negative: Unclear, Inappropriate, Delayed, Slurred, Excessive, Aphasic, Artificially Ventilated - Laboratory and Diagnostics Result Diagrams: 06/15/17 05:05 06/15/17 05:05 Labs: Laboratory WBC 3.6 X10^3/uL (3.6-10.0) 06/15/17 05:05 RBC 4.74 X10^6/uL (3.5-5.4) 06/15/17 05:05 Hgb 13.4 g/dL (12.0-16.0) 06/15/17 05:05 Hct 39.1 % (36.0-47.0) 06/15/17 05:05 MCV 82.5 fL (80.0-100.0) 06/15/17 05:05 MCH 28.2 pg (27.0-34.0) 06/15/17 05:05 MCHC 34.2 g/dL (33.0-35.0) 06/15/17 05:05 RDW 14.3 % (11.6-16.5) 06/15/17 05:05 Plt Count 242 X10^3/uL (150.0-450.0) 06/15/17 05:05 MPV 8.9 fL (7.4-11.0) 06/15/17 05:05 Neut % 59.2 % (42.0-75.0) 06/15/17 05:05 Lymph % 29.0 % (21.0-51.0) 06/15/17 05:05 [place] % 10.4 % (0.0-13.0) 06/15/17 05:05 Eos % 0.6 % (0.9-2.9) L 06/15/17 05:05 Baso % 0.8 % (0.2-1.0) 06/15/17 05:05 Neut # 2.2 x10^3/uL (2.2-4.8) 06/15/17 05:05 Lymph # 1.1 X10^3/uL (1.3-2.9) L 06/15/17 05:05 [place] # 0.4 x10^3/uL (0.3-0.8) 06/15/17 05:05 Eos # 0.0 x10^3/uL (0.0-0.2) 06/15/17 05:05 Baso # 0.0 X10^3/uL (0.0-0.1) 06/15/17 05:05 Absolute Nucleated RBC 0.6 /100WBC 06/15/17 05:05 Sodium 125 mmol/L (136-145) L* 06/15/17 05:05 Corrected Sodium TNP 06/15/17 05:05 Potassium 3.8 mmol/L (3.5-5.1) 06/15/17 05:05 Chloride 89 mmol/L (98-107) L 06/15/17 05:05 Carbon Dioxide 28.4 mmol/L (21-32) 06/15/17 05:05 BUN 18 mg/dL (7-18) 06/15/17 05:05 Creatinine 0.96 mg/dL (0.55-1.02) 06/15/17 05:05 Est GFR (MDRD) Af Amer > 60 (>60) 06/15/17 05:05 Est GFR (MDRD) Non-Af 59 (>60) 06/15/17 05:05 Glucose 78 mg/dL (65-99) 06/15/17 05:05 Calcium 8.0 mg/dL (8.5-10.1) L 06/15/17 05:05 Corrected Calcium 8.7 mg/dL (8.5-10.1) 06/15/17 05:05 Total Bilirubin 0.70 mg/dL (0.2-1.0) 06/15/17 05:05 AST 44 Units/L (15-37) H 06/15/17 05:05 ALT 39 Units/L (12-78) 06/15/17 05:05 Alkaline Phosphatase 79 Units/L (46-116) 06/15/17 05:05 Total Protein 7.0 g/dL (6.4-8.2) 06/15/17 05:05 Albumin 3.1 g/dL (3.4-5.0) L 06/15/17 05:05 Globulin 3.9 g/dL (2.5-4.5) 06/15/17 05:05 Albumin/Globulin Ratio 0.8 Ratio (1.1-2.1) L 06/15/17 05:05 Specimen Type Clean catch urine 06/14/17 23:14 Urine Color Yellow (YELLOW) 06/14/17 23:14 Urine Appearance Hazy (CLEAR) 06/14/17 23:14 Urine pH 6.5 (5.0 - 8.0) 06/14/17 23:14 Ur Specific [place] 1.010 (1.000-1.030) 06/14/17 23:14 Urine Protein 2+ (NEGATIVE) 06/14/17 23:14 Urine Glucose (UA) Negative (NEGATIVE) 06/14/17 23:14 Urine Ketones Negative (NEGATIVE) 06/14/17 23:14 Urine Occult Blood 1+ (NEGATIVE) 06/14/17 23:14 Urine Nitrite Positive (NEGATIVE) 06/14/17 23:14 Urine Bilirubin Negative (NEGATIVE) 06/14/17 23:14 Urine Urobilinogen Normal (NORMAL) 06/14/17 23:14 Ur Leukocyte Esterase 1+ (NEGATIVE) 06/14/17 23:14 Urine RBC 3-5 /HPF (NEGATIVE) 06/14/17 23:14 Urine WBC 8-10 /HPF (NEGATIVE) 06/14/17 23:14 Ur Squamous Epith Cells Few /HPF (NEGATIVE) 06/14/17 23:14 Amorphous Sediment 1+ /HPF (NEGATIVE) 06/14/17 23:14 Urine Bacteria 3+ /HPF (NEGATIVE) 06/14/17 23:14 Ur Culture Indicated? Yes/culture set up 06/14/17 23:14 - Plan (1) Dehydration Status: Acute Plan: CONTINUE NS @75 ML/HR, CONTINUE TO MONITOR LABS (2) Hyponatremia Status: Acute Plan: NS @ 75 ML/HR. RESTRICT ORAL FLUIDS TO LESS THAN 1 LITER/DAY. CONTINUE TO MONITOR LABS (3) Weakened patient Status: Acute Plan: CONTINUE TO MONITOR, PT/OT CONSULT (4) Appetite loss Status: Chronic Plan: MEGACE 20MG PO BID (5) Esophageal reflux Status: Chronic Qualifiers: Esophagitis presence: esophagitis presence not specified Qualified Code(s) : K21.9 - Gastro-esophageal reflux disease without esophagitis Plan: CONTINUE PROTONIX DAILY, CONTINUE TO MONITOR (6) Essential hypertension, benign Status: Chronic Plan: CONTINUE MAXZIDE DAILY, CONTINUE LOPRESSOR BID, CONTINUE TO MONITOR
[2017-06-15] MEDS ORDERED: ZOFRAN TAB 4 MG PO PRN (17:00)
[2017-06-15] MEDS: XANAX PO PRN (20:26)
[2017-06-16] MEDS: NYSTATIN POWDER TOP SCH ×3 (05:50→20:25)
[2017-06-16 06:14] LABS: BASOPHILS % (AUTO) 0.4 % (0.2-1.0); EOSINOPHILS # (AUTO) 0.1 x10^3/uL (0.0-0.2); HEMATOCRIT 39.7 % (36.0-47.0); HEMOGLOBIN 13.7 g/dL (12.0-16.0); LYMPHOCYTES # (AUTO) 1.5 X10^3/uL (1.3-2.9); LYMPHOCYTES % (AUTO) 38.7 % (21.0-51.0); MEAN CORPUSCULAR HEMOGLOBIN 28.5 pg (27.0-34.0); MEAN CORPUSCULAR HGB CONC 34.5 g/dL (33.0-35.0); MEAN CORPUSCULAR VOLUME 82.7 fL (80.0-100.0); MEAN PLATELET VOLUME 8.5 fL (7.4-11.0); MONOCYTES # (AUTO) 0.4 x10^3/uL (0.3-0.8); MONOCYTES % (AUTO) 10.4 % (0.0-13.0); NEUTROPHILS # (AUTO) 1.9 x10^3/uL (2.2-4.8); NEUTROPHILS % (AUTO) 48.5 % (42.0-75.0); PLATELET COUNT 272 X10^3/uL (150.0-450.0); RED CELL DISTRIBUTION WIDTH 14.6 % (11.6-16.5); WHITE BLOOD COUNT 3.9 X10^3/uL (3.6-10.0)
[2017-06-16 06:37] LABS: ALANINE AMINOTRANSFERASE 34 Units/L (12-78); ALBUMIN 2.9 g/dL (3.4-5.0); ALKALINE PHOSPHATASE 75 Units/L (46-116); ASPARTATE AMINO TRANSFERASE 37 Units/L (15-37); BLOOD UREA NITROGEN 13 mg/dL (7-18); CALCIUM 8.2 mg/dL (8.5-10.1); CARBON DIOXIDE 24.1 mmol/L (21-32); CHLORIDE 97 mmol/L (98-107); COR CA(FOR HYPOALB) 9.1 mg/dL (8.5-10.1); CREATININE 0.83 mg/dL (0.55-1.02); GLUCOSE 86 mg/dL (65-99); SODIUM 130 mmol/L (136-145); TOTAL PROTEIN 6.8 g/dL (6.4-8.2); eGFR BLACK RACES > 60 (>60); eGFR NON BLACK RACES > 60 (>60)
[2017-06-16] MEDS ORDERED: LEXAPRO ONE (10:09)
[2017-06-16] MEDS: ROCEPHIN VIAL 1 GM 1 GM in NS 50 ML IV + SPIKE MINIBAG* 50 ML IV SCH (10:13)
[2017-06-16] MEDS: LEXAPRO PO SCH (10:13)
[2017-06-16] MEDS: ECOTRIN TAB 325 MG PO SCH (10:13)
[2017-06-16] MEDS: DIFLUCAN 200 MG IV PREMIX* 200 MG/100 ML BAG IV SCH (10:13)
[2017-06-16] MEDS: MEGACE PO SCH ×2 (10:14→20:24)
[2017-06-16] MEDS: PROTONIX TAB 40 MG PO SCH (10:15)
[2017-06-16] MEDS: LOPRESSOR TAB 25 MG PO SCH ×2 (10:16→20:25)
--- NOTE | 2017-06-16 11:13 | PCM.PROG ---
Progress Note - Progress Note for Day of Date: 06/16/17 - Subjective Subjective: WAS A DIRECT ADMISSION FROM OUR OFFICE FOR HYPONATREMIA. SHE IS ALERT AND ORIENTED, IN BED, ON MORNING ROUNDS. SHE IS NOTED WITH NO COMPLAINTS ON ROUNDS. LUNGS ARE CLEAR ON AUSCULTATION. BOWEL SOUNDS NORMAL IN ALL QUADRANTS. VITALS THIS AM ARE 98.2-67-14-100%-129/61. CBC WNL. CMP WNL EXCEPT SODIUM 130, CHLORIDE 97, CALCIUM 8.2, ALBUMIN 2.9. WE WILL CONTINUE WITH CURRENT PLAN OF CARE. WE DISCUSSED SNF PLACEMENT WITH PATIENT'S DAUGHTER DUE TO INABILITY TO CARE FOR HERSELF AND MANAGE MEDICATIONS AT HOME. DAUGHTER IS IN AGREEMENT. CASE MANAGEMENT WILL ARRANGE THIS WITH [facility]. WE WILL CHECK CBC, CHECK CMP, AND FOLLOW UP WITH PATIENT IN AM. - Past Medical Family Social History Past Med/Fam/Surg Hx: No changes since H&P Allergies: Allergies acetaminophen [From Darvocet-N] Allergy (Verified 05/24/17 11:56) codeine Allergy (Verified 05/24/17 11:56) hydrocodone [From Lorcet (hydrocodone)] Allergy (Verified 05/24/17 11:56) oxycodone [From Percocet] Allergy (Verified 05/24/17 11:56) propoxyphene [From Darvocet-N] Allergy (Verified 05/24/17 11:56) - Review of Systems ROS: No change since H&P - Vital Signs and I&O's Vital Signs: Temperature 98.2 F Pulse Rate [Right Brachial] 79 Respiratory Rate 13 Blood Pressure [Left Arm] 115/53 Blood Pressure [Right Arm] 116/40 Blood Pressure 112/60 O2 Sat by Pulse Oximetry 100 Intake and Output: Intake & Output 06/13/17 06/14/17 06/15/17 06/16/17 11:59 11:59 11:59 11:59 Intake Total 619 2164 Output Total 850 1950 Balance -231 214 - Physical Exam Oriented: Normal. negative: Time, Person, Place, Not Oriented, Unable to test, Other Eyes: Normal. negative: Blurred Vision, Diplopia, Discharge, Pain, Redness, Photophobia, Other Ear: Normal. negative: Right, Left, Swelling, Ecchymosis, Hemotypanum, Abrasion , Laceration Nose: Normal. negative: Injected, Discharge, Blood, Other Throat: Normal. negative: Tonsillar Hypertrophy, Red, Exudate, Dry, Other Respiratory: Normal. negative: Right, Left, Generalized, Superior, Inferior, Diminished, Wheezes, Rales, Rhonchi, OTHER Cardiovascular: Normal. negative: Tachycardia, Bradycardia, Irregular, S3, S4, Systolic, Diastolic, Murmur, Edema, Other : Normal. negative: Dysuria, Hematuria, Frequency, Discharge, Testicular Pain , Bleeding, , Other Auscultation: Bowel Sounds: Normal. negative: Bruit, Absent, Increased, Decreased, High Pitched, Other Palpation: Normal Tenderness: Normal. negative: Diffuse, RUQ, RLQ, LUQ, LLQ, Epigastric, Periumbilical, Suprapubic, Mild, Moderate, Severe, Rebound, Guarding, Rigidity, Other Skin: Normal. negative: Decreased Turgur, Rash, Papular, Macular, Maculopapular , Vesicular, Pustular, Petechial, Red, Tender, Hot, Diaphoresis, Wound, Bruising , Ecchymosis, Other Musculoskeletal: Normal. negative: Right, Left, Shoulder, Clavicle, Arm, Elbow , Forearm, Wrist, Hand, Hip, Thigh, Knee, Leg, Ankle, Foot, Back:Thoracic, Back: Lumbar, Back:Midline, Back:Paraspinous, Pelvis, Swelling, Tender, Deformity, Pulse Deficit, Motor Deficit, Sensory Deficit, Instability, Crepitance Psychiatric: Normal. negative: Anxiety, Depression, Agitation, Other Mood Description: Calm. negative: Angry, Apathetic, Depressed, Fearful, Flat, Happy, Hostile, Sad, Suspicious, Withdrawn, Anxious, Appropriate, Labile Affect: Normal. negative: Angry, Anxious, Depressed, Flat, Hysterical, Quiet, Violent Speech Pattern: Clear, Appropriate - Laboratory and Diagnostics Result Diagrams: 06/16/17 04:35 06/16/17 04:35 Labs: 06/14/17 23:14 Urine,Clean Catch Urine Culture - Preliminary Laboratory WBC 3.9 X10^3/uL (3.6-10.0) 06/16/17 04:35 RBC 4.80 X10^6/uL (3.5-5.4) 06/16/17 04:35 Hgb 13.7 g/dL (12.0-16.0) 06/16/17 04:35 Hct 39.7 % (36.0-47.0) 06/16/17 04:35 MCV 82.7 fL (80.0-100.0) 06/16/17 04:35 MCH 28.5 pg (27.0-34.0) 06/16/17 04:35 MCHC 34.5 g/dL (33.0-35.0) 06/16/17 04:35 RDW 14.6 % (11.6-16.5) 06/16/17 04:35 Plt Count 272 X10^3/uL (150.0-450.0) 06/16/17 04:35 MPV 8.5 fL (7.4-11.0) 06/16/17 04:35 Neut % 48.5 % (42.0-75.0) 06/16/17 04:35 Lymph % 38.7 % (21.0-51.0) 06/16/17 04:35 [place] % 10.4 % (0.0-13.0) 06/16/17 04:35 Eos % 2.0 % (0.9-2.9) 06/16/17 04:35 Baso % 0.4 % (0.2-1.0) 06/16/17 04:35 Neut # 1.9 x10^3/uL (2.2-4.8) L 06/16/17 04:35 Lymph # 1.5 X10^3/uL (1.3-2.9) 06/16/17 04:35 [place] # 0.4 x10^3/uL (0.3-0.8) 06/16/17 04:35 Eos # 0.1 x10^3/uL (0.0-0.2) 06/16/17 04:35 Baso # 0.0 X10^3/uL (0.0-0.1) 06/16/17 04:35 Absolute Nucleated RBC 0.4 /100WBC 06/16/17 04:35 Sodium 130 mmol/L (136-145) L 06/16/17 04:35 Corrected Sodium TNP 06/16/17 04:35 Potassium 3.7 mmol/L (3.5-5.1) 06/16/17 04:35 Chloride 97 mmol/L (98-107) L 06/16/17 04:35 Carbon Dioxide 24.1 mmol/L (21-32) 06/16/17 04:35 BUN 13 mg/dL (7-18) 06/16/17 04:35 Creatinine 0.83 mg/dL (0.55-1.02) 06/16/17 04:35 Est GFR (MDRD) Af Amer > 60 (>60) 06/16/17 04:35 Est GFR (MDRD) Non-Af > 60 (>60) 06/16/17 04:35 Glucose 86 mg/dL (65-99) 06/16/17 04:35 Calcium 8.2 mg/dL (8.5-10.1) L 06/16/17 04:35 Corrected Calcium 9.1 mg/dL (8.5-10.1) 06/16/17 04:35 Total Bilirubin 0.50 mg/dL (0.2-1.0) 06/16/17 04:35 AST 37 Units/L (15-37) 06/16/17 04:35 ALT 34 Units/L (12-78) 06/16/17 04:35 Alkaline Phosphatase 75 Units/L (46-116) 06/16/17 04:35 Total Protein 6.8 g/dL (6.4-8.2) 06/16/17 04:35 Albumin 2.9 g/dL (3.4-5.0) L 06/16/17 04:35 Globulin 3.9 g/dL (2.5-4.5) 06/16/17 04:35 Albumin/Globulin Ratio 0.7 Ratio (1.1-2.1) L 06/16/17 04:35 Specimen Type Clean catch urine 06/14/17 23:14 Urine Color Yellow (YELLOW) 06/14/17 23:14 Urine Appearance Hazy (CLEAR) 06/14/17 23:14 Urine pH 6.5 (5.0 - 8.0) 06/14/17 23:14 Ur Specific [place] 1.010 (1.000-1.030) 06/14/17 23:14 Urine Protein 2+ (NEGATIVE) 06/14/17 23:14 Urine Glucose (UA) Negative (NEGATIVE) 06/14/17 23:14 Urine Ketones Negative (NEGATIVE) 06/14/17 23:14 Urine Occult Blood 1+ (NEGATIVE) 06/14/17 23:14 Urine Nitrite Positive (NEGATIVE) 06/14/17 23:14 Urine Bilirubin Negative (NEGATIVE) 06/14/17 23:14 Urine Urobilinogen Normal (NORMAL) 06/14/17 23:14 Ur Leukocyte Esterase 1+ (NEGATIVE) 06/14/17 23:14 Urine RBC 3-5 /HPF (NEGATIVE) 06/14/17 23:14 Urine WBC 8-10 /HPF (NEGATIVE) 06/14/17 23:14 Ur Squamous Epith Cells Few /HPF (NEGATIVE) 06/14/17 23:14 Amorphous Sediment 1+ /HPF (NEGATIVE) 06/14/17 23:14 Urine Bacteria 3+ /HPF (NEGATIVE) 06/14/17 23:14 Ur Culture Indicated? Yes/culture set up 06/14/17 23:14 - Plan (1) Dehydration Status: Acute Plan: CONTINUE NS @75 ML/HR, CONTINUE TO MONITOR LABS (2) Hyponatremia Status: Acute Plan: NS @ 75 ML/HR. RESTRICT ORAL FLUIDS TO LESS THAN 1 LITER/DAY. CONTINUE TO MONITOR LABS (3) Weakened patient Status: Acute Plan: CONTINUE TO MONITOR, PT/OT CONSULT (4) Appetite loss Status: Chronic Plan: MEGACE 20MG PO BID (5) Esophageal reflux Status: Chronic Qualifiers: Esophagitis presence: esophagitis presence not specified Qualified Code(s) : K21.9 - Gastro-esophageal reflux disease without esophagitis Plan: CONTINUE PROTONIX DAILY, CONTINUE TO MONITOR (6) Essential hypertension, benign Status: Chronic Plan: CONTINUE MAXZIDE DAILY, CONTINUE LOPRESSOR BID, CONTINUE TO MONITOR
[2017-06-16] MEDS: NS 1000 ML 1,000 ML IV SCH (11:20)
[2017-06-16] MEDS: XANAX PO PRN (20:25)
[2017-06-17] MEDS: NS 1000 ML 1,000 ML IV SCH (03:26)
[2017-06-17 06:15] LABS: BASOPHILS % (AUTO) 0.5 % (0.2-1.0); EOSINOPHILS # (AUTO) 0.1 x10^3/uL (0.0-0.2); EOSINOPHILS % (AUTO) 1.5 % (0.9-2.9); HEMATOCRIT 36.5 % (36.0-47.0); HEMOGLOBIN 12.5 g/dL (12.0-16.0); LYMPHOCYTES # (AUTO) 1.6 X10^3/uL (1.3-2.9); LYMPHOCYTES % (AUTO) 33.2 % (21.0-51.0); MEAN CORPUSCULAR HEMOGLOBIN 28.5 pg (27.0-34.0); MEAN CORPUSCULAR HGB CONC 34.2 g/dL (33.0-35.0); MEAN CORPUSCULAR VOLUME 83.3 fL (80.0-100.0); MEAN PLATELET VOLUME 8.3 fL (7.4-11.0); MONOCYTES # (AUTO) 0.4 x10^3/uL (0.3-0.8); MONOCYTES % (AUTO) 8.6 % (0.0-13.0); NEUTROPHILS # (AUTO) 2.8 x10^3/uL (2.2-4.8); NEUTROPHILS % (AUTO) 56.2 % (42.0-75.0); PLATELET COUNT 264 X10^3/uL (150.0-450.0); RED BLOOD COUNT 4.38 X10^6/uL (3.5-5.4); RED CELL DISTRIBUTION WIDTH 14.8 % (11.6-16.5); WHITE BLOOD COUNT 4.9 X10^3/uL (3.6-10.0)
[2017-06-17 06:40] LABS: ALANINE AMINOTRANSFERASE 30 Units/L (12-78); ALBUMIN 2.7 g/dL (3.4-5.0); ALKALINE PHOSPHATASE 64 Units/L (46-116); ASPARTATE AMINO TRANSFERASE 27 Units/L (15-37); BLOOD UREA NITROGEN 13 mg/dL (7-18); CALCIUM 7.8 mg/dL (8.5-10.1); CARBON DIOXIDE 24.3 mmol/L (21-32); CHLORIDE 100 mmol/L (98-107); COR CA(FOR HYPOALB) 8.8 mg/dL (8.5-10.1); GLUCOSE 97 mg/dL (65-99); SODIUM 132 mmol/L (136-145); TOTAL PROTEIN 6.4 g/dL (6.4-8.2); eGFR BLACK RACES > 60 (>60); eGFR NON BLACK RACES > 60 (>60)
[2017-06-17] MEDS ORDERED: LEXAPRO ONE (09:02)
[2017-06-17] MEDS: ECOTRIN TAB 325 MG PO SCH (09:35)
[2017-06-17] MEDS: LEXAPRO PO SCH (09:35)
[2017-06-17] MEDS: ROCEPHIN VIAL 1 GM 1 GM in NS 50 ML IV + SPIKE MINIBAG* 50 ML IV SCH (09:35)
[2017-06-17] MEDS: MEGACE PO SCH (09:35)
[2017-06-17] MEDS: DIFLUCAN 200 MG IV PREMIX* 200 MG/100 ML BAG IV SCH (09:35)
[2017-06-17] MEDS: PROTONIX TAB 40 MG PO SCH (09:35)
[2017-06-17] MEDS: LOPRESSOR TAB 25 MG PO SCH (09:35)
[2017-06-17] MEDS: NYSTATIN POWDER TOP SCH (09:38)
[2017-06-17] MEDS ORDERED: MILK OF MAGNESIA PO PRN (10:29)
[2017-06-17] MEDS ORDERED: COLACE CAP 100 MG PO SCH (11:00)
[2017-06-17 12:29] VITALS: BP 140/50
== END 2017-06-17 12:31 | DRG 641 ==
LOC: ICU 13:24
PROVIDERS: ADMIT Internal Medicine; ATTEND Internal Medicine
DX: E87.1 Hypo-osmolality and hyponatremia (principal); E86.0 Dehydration; E78.1 Pure hyperglyceridemia; F41.1 Generalized anxiety disorder; D50.8 Other iron deficiency anemias; B96.81 Helicobacter pylori [H. pylori] as the cause of diseases classified elsewhere; R53.1 Weakness; E03.8 Other specified hypothyroidism; I10 Essential (primary) hypertension; K21.9 Gastro-esophageal reflux disease without esophagitis; R41.82 Altered mental status, unspecified; R51 Headache; B96.29 Other Escherichia coli [E. coli] as the cause of diseases classified elsewhere; R26.89 Other abnormalities of gait and mobility; Z66 Do not resuscitate
CPT/HCPCS: 36415; 80053; 81001; 85025; 87086; 87088; 87186; A4216; A4222; S0179; J0696; J1450; J2405

== ENCOUNTER 2017-06-28 21:08 | Inpatient (IN) | payer OTHER, MEDICAID ==
--- NOTE | 2017-06-28 22:12 | DR.GENAD ---
HPI - PCP Primary Care Physician: CHELSEY - Complaint/Symptoms Chief Complaint Doctors Comments: History as stated. Chief Complaint:: ELEVATED RESP RATE AND PULSE RATE. DECREASED SATS. RT SIDED CHEST PAIN RADIATES TO LOWER BACK, INT. - Source History Provided: Patient, Retirement - Mode of Arrival Mode of Arrival: Stretcher - Timing Onset of Chief Complaint: 06/28/17 PMH - PMH Past Medical History: Yes Past Medical History: Alzheimers, CHF, Coronary Artery Disease, Dementia, Diabetes, GERD, Hypertension, Hypothyroidism Past Surgical History: Yes Surgical History: Hysterectomy, Other - Family History History of Family Medical Conditions: Yes Family Medical History: Diabetes Mellitus, Heart Failure, Hypertension - Social History Does patient currently use any type of tobacco product: No Have you used tobacco products in the last 12 months: No Type of Tobacco Use: None Alcohol Use: None Do you use any recreational Drugs:: No Lives With: Other Lives Where: Retirement - infectious screening Have you traveled outside the country in the last 6 months?: No Isolation: Standard ROS - Review of Systems Eyes: No Symptoms Reported ENTM: No Symptoms Reported Respiratoy: No Symptoms Reported Cardiovascular: No Symptoms Reported Gastrointestinal/Abdominal: No Symptoms Reported Genitourinary: No Symptoms Reported Neurological: No Symptoms Reported Musculoskeletal: No Symptoms Reported Integumentary: No Symptoms Reported Hematologic/Lymphatic: No Symptoms Reported Endocrine: No Symptoms Reported Psychiatric: No Symptoms Reported All Other Systems: Reviewed and Negative PE - Vital Signs Vitals: Temperature 97.5 F Pulse Rate 108 Respiratory Rate 18 Blood Pressure [Left Arm] 140/50 Blood Pressure [Right Arm] 116/40 Blood Pressure 135/64 O2 Sat by Pulse Oximetry 93 - General Limitations: Other (hearing impairment) General Appearance: Alert, In No Apparent Distress - Head Head Exam: Normal Inspection, Atraumatic - Eyes Eye exam: Normal Appearance, PERRL - ENT ENT Exam: Normal Exam External Ear Exam: Normal External Inspection TM/Canal Exam: Bilateral Normal Nose Exam: Normal Nose Exam Mouth Exam: Normal Inspection Throat Exam: Normal Inspection - Neck Neck Exam: Normal Inspection, Full ROM - Chest Chest Inspection: Normal Inspection - Respiratory Respiratory Exam: Normal Lung Sounds Bilat Respiratory Exam: Bilateral Clear to Auscultation - Cardiovascular Cardiovascular Exam: Regular Rate - Abdominal Exam Abdominal Exam: Normal Inspection, Normal Bowel Sounds Abdominal Tenderness: negative: RUQ, RLQ, LUQ, LLQ, Epigastrium, Suprapubic, Diffuse, Mild, Moderate, Severe, Other - Extremities Extremities Exam: Normal Inspection, Full ROM - Back Back Exam: Normal Inspection - Neurologic Neurological Exam: Alert, Oriented X3, CN II-XII Intact - Psychiatric Psychiatric Exam: Normal Affect - Skin Skin Exam: Warm, Dry, Intact Course - Reevaluation 1st: Unchanged ROR - Labs Reviewed Result Diagrams: 06/28/17 22:20 06/28/17 22:20 Laboratory: WBC 7.1 X10^3/uL (3.6-10.0) 06/28/17 22:20 RBC 4.61 X10^6/uL (3.5-5.4) 06/28/17 22:20 Hgb 13.0 g/dL (12.0-16.0) 06/28/17 22:20 Hct 38.1 % (36.0-47.0) 06/28/17 22:20 MCV 82.7 fL (80.0-100.0) 06/28/17 22:20 MCH 28.2 pg (27.0-34.0) 06/28/17 22:20 MCHC 34.1 g/dL (33.0-35.0) 06/28/17 22:20 RDW 15.0 % (11.6-16.5) 06/28/17 22:20 Plt Count 269 X10^3/uL (150.0-450.0) 06/28/17 22:20 MPV 8.2 fL (7.4-11.0) 06/28/17 22:20 Neut % 80.2 % (42.0-75.0) H 06/28/17 22:20 Lymph % 8.6 % (21.0-51.0) L 06/28/17 22:20 [place] % 9.9 % (0.0-13.0) 06/28/17 22:20 Eos % 0.8 % (0.9-2.9) L 06/28/17 22:20 Baso % 0.5 % (0.2-1.0) 06/28/17 22:20 Neut # 5.7 x10^3/uL (2.2-4.8) H 06/28/17 22:20 Lymph # 0.6 X10^3/uL (1.3-2.9) L 06/28/17 22:20 [place] # 0.7 x10^3/uL (0.3-0.8) 06/28/17 22:20 Eos # 0.1 x10^3/uL (0.0-0.2) 06/28/17 22:20 Baso # 0.0 X10^3/uL (0.0-0.1) 06/28/17 22:20 Absolute Nucleated RBC 0.0 /100WBC 06/28/17 22:20 INR Target Range - 06/28/17 22:20 INR 1.23 (0.8-1.3) 06/28/17 22:20 PTT 28.4 SECONDS (22.9-36.5) 06/28/17 22:20 PTT Comment - 06/28/17 22:20 Sodium 126 mmol/L (136-145) L 06/28/17 22:20 Corrected Sodium 128 mmol/L (136-145) L 06/28/17 22:20 Potassium 5.2 mmol/L (3.5-5.1) H 06/28/17 22:20 Chloride 93 mmol/L (98-107) L 06/28/17 22:20 Carbon Dioxide 29.3 mmol/L (21-32) 06/28/17 22:20 BUN 24 mg/dL (7-18) H 06/28/17 22:20 Creatinine 0.94 mg/dL (0.55-1.02) 06/28/17 22:20 Est GFR (MDRD) Af Amer > 60 (>60) 06/28/17 22:20 Est GFR (MDRD) Non-Af > 60 (>60) 06/28/17 22:20 Glucose 197 mg/dL (65-99) H 06/28/17 22:20 Calcium 7.7 mg/dL (8.5-10.1) L 06/28/17 22:20 Corrected Calcium 8.9 mg/dL (8.5-10.1) 06/28/17 22:20 Phosphorus 3.7 mg/dL (2.6-4.7) 06/28/17 22:20 Magnesium 1.4 mg/dL (1.7-2.9) L 06/28/17 22:20 Total Bilirubin 0.40 mg/dL (0.2-1.0) 06/28/17 22:20 AST 35 Units/L (15-37) 06/28/17 22:20 ALT 47 Units/L (12-78) 06/28/17 22:20 Alkaline Phosphatase 68 Units/L (46-116) 06/28/17 22:20 Creatine Kinase 50 Units/L (26-192) 06/28/17 22:20 CK-MB (CK-2) 2.2 ng/mL (0-4.0) 06/28/17 22:20 CK/CKMB % Calc 4.4 % (<4) 06/28/17 22:20 Troponin I 0.04 ng/mL (0-1.5) 06/28/17 22:20 Total Protein 6.5 g/dL (6.4-8.2) 06/28/17 22:20 Albumin 2.5 g/dL (3.4-5.0) L 06/28/17 22:20 Globulin 4.0 g/dL (2.5-4.5) 06/28/17 22:20 Albumin/Globulin Ratio 0.6 Ratio (1.1-2.1) L 06/28/17 22:20 - XRAY XRAY Interpreted by: Radiologist (Chest: Enlarged cardiac silhouette appears unchanged given technique. Enlarged perihilar vasculature with persistent small pleural effusions. Alveolar/interstitial markings are seen within the bilateral lower lobes. No bvious pneumothorax. Fluid is seen within the right major fissures. The osseous structures appear unchanged. Impression: Constellation of findings likely representing pulmonary edema secondary to congestive heart failure. Underlying infiltrate not entirely excluded.) - Diagnosis Discharge Problem: Hyponatremia CHF (congestive heart failure) Qualifiers: Congestive heart failure type: unspecified congestive heart failure type Congestive heart failure chronicity: acute Qualified Code(s): I50.9 - Heart failure, unspecified - Discharge Plan Condition: Stable - Follow ups/Referrals Follow ups/Referrals: Tristen Miller [Primary Care Provider] - 3 days - Instructions
[2017-06-28 22:33] LABS: BASOPHILS % (AUTO) 0.5 % (0.2-1.0); EOSINOPHILS # (AUTO) 0.1 x10^3/uL (0.0-0.2); EOSINOPHILS % (AUTO) 0.8 % (0.9-2.9); HEMATOCRIT 38.1 % (36.0-47.0); LYMPHOCYTES # (AUTO) 0.6 X10^3/uL (1.3-2.9); LYMPHOCYTES % (AUTO) 8.6 % (21.0-51.0); MEAN CORPUSCULAR HEMOGLOBIN 28.2 pg (27.0-34.0); MEAN CORPUSCULAR HGB CONC 34.1 g/dL (33.0-35.0); MEAN CORPUSCULAR VOLUME 82.7 fL (80.0-100.0); MEAN PLATELET VOLUME 8.2 fL (7.4-11.0); MONOCYTES # (AUTO) 0.7 x10^3/uL (0.3-0.8); MONOCYTES % (AUTO) 9.9 % (0.0-13.0); NEUTROPHILS # (AUTO) 5.7 x10^3/uL (2.2-4.8); NEUTROPHILS % (AUTO) 80.2 % (42.0-75.0); PLATELET COUNT 269 X10^3/uL (150.0-450.0); RED BLOOD COUNT 4.61 X10^6/uL (3.5-5.4); WHITE BLOOD COUNT 7.1 X10^3/uL (3.6-10.0)
[2017-06-28 22:36] LABS: BLOOD UREA NITROGEN 24 mg/dL (7-18); CALCIUM 7.7 mg/dL (8.5-10.1); CARBON DIOXIDE 29.3 mmol/L (21-32); CHLORIDE 93 mmol/L (98-107); COR NA(FOR HYPERGLY) 128 mmol/L (136-145); CREATININE 0.94 mg/dL (0.55-1.02); GLUCOSE 197 mg/dL (65-99); SODIUM 126 mmol/L (136-145); eGFR BLACK RACES > 60 (>60); eGFR NON BLACK RACES > 60 (>60)
[2017-06-28 22:41] LABS: ALANINE AMINOTRANSFERASE 47 Units/L (12-78); ALBUMIN 2.5 g/dL (3.4-5.0); ALKALINE PHOSPHATASE 68 Units/L (46-116); ASPARTATE AMINO TRANSFERASE 35 Units/L (15-37); COR CA(FOR HYPOALB) 8.9 mg/dL (8.5-10.1); TOTAL PROTEIN 6.5 g/dL (6.4-8.2)
[2017-06-28 23:26] LABS: MAGNESIUM 1.4 mg/dL (1.7-2.9); PHOSPHORUS 3.7 mg/dL (2.6-4.7)
[2017-06-28 23:35] LABS: CKMB % 4.4 % (<4); CREATINE KINASE MB 2.2 ng/mL (0-4.0); TROPONIN I 0.04 ng/mL (0-1.5)
[2017-06-29] MEDS ORDERED: DUONEB 0.5 MG/3 MG NEB ONE (00:15)
[2017-06-29] MEDS ORDERED: PROVENTIL NEB TX 0.083% 2.5MG/ 3ML ONE (00:16)
[2017-06-29] MEDS ORDERED: PROVENTIL NEB TX 0.083% 2.5MG/ 3ML NEB ONE (00:20)
[2017-06-29] MEDS ORDERED: ZOFRAN INJ 4 MG VIAL IVP PRN (00:37)
[2017-06-29 04:22] LABS: ALANINE AMINOTRANSFERASE 47 Units/L (12-78); ALBUMIN 2.7 g/dL (3.4-5.0); ALKALINE PHOSPHATASE 70 Units/L (46-116); ASPARTATE AMINO TRANSFERASE 35 Units/L (15-37); BLOOD UREA NITROGEN 22 mg/dL (7-18); CALCIUM 7.8 mg/dL (8.5-10.1); CHLORIDE 92 mmol/L (98-107); CKMB % 5.9 % (<4); COR CA(FOR HYPOALB) 8.8 mg/dL (8.5-10.1); COR NA(FOR HYPERGLY) 128 mmol/L (136-145); CREATINE KINASE 58 Units/L (26-192); CREATINE KINASE MB 3.4 ng/mL (0-4.0); GLUCOSE 155 mg/dL (65-99); SODIUM 127 mmol/L (136-145); TOTAL PROTEIN 6.9 g/dL (6.4-8.2); TROPONIN I 0.15 ng/mL (0-1.5); eGFR BLACK RACES > 60 (>60); eGFR NON BLACK RACES > 60 (>60)
[2017-06-29 05:17] LABS: BASOPHILS % (AUTO) 0.5 % (0.2-1.0); EOSINOPHILS % (AUTO) 0.4 % (0.9-2.9); HEMATOCRIT 39.9 % (36.0-47.0); HEMOGLOBIN 13.5 g/dL (12.0-16.0); LYMPHOCYTES # (AUTO) 0.7 X10^3/uL (1.3-2.9); LYMPHOCYTES % (AUTO) 9.7 % (21.0-51.0); MEAN CORPUSCULAR HEMOGLOBIN 28.1 pg (27.0-34.0); MEAN CORPUSCULAR HGB CONC 33.9 g/dL (33.0-35.0); MEAN CORPUSCULAR VOLUME 82.9 fL (80.0-100.0); MONOCYTES # (AUTO) 0.7 x10^3/uL (0.3-0.8); MONOCYTES % (AUTO) 10.3 % (0.0-13.0); NEUTROPHILS # (AUTO) 5.7 x10^3/uL (2.2-4.8); NEUTROPHILS % (AUTO) 79.1 % (42.0-75.0); PLATELET COUNT 286 X10^3/uL (150.0-450.0); RED BLOOD COUNT 4.81 X10^6/uL (3.5-5.4); RED CELL DISTRIBUTION WIDTH 15.1 % (11.6-16.5); WHITE BLOOD COUNT 7.2 X10^3/uL (3.6-10.0)
[2017-06-29] MEDS ORDERED: MAGNESIUM SULFATE 1 GM/100 mL PREMIX 1 GM/100 ML BAG IV ONE ×2 (05:37→10:24)
[2017-06-29] MEDS ORDERED: LEXAPRO ONE (07:47)
[2017-06-29] MEDS: ALDACTONE TAB 25 MG PO SCH (08:15)
[2017-06-29] MEDS: LASIX IVP SCH (08:15)
[2017-06-29] MEDS: VITAMIN C PO SCH ×2 (08:15→21:28)
[2017-06-29] MEDS: PROTONIX INJ 40 MG VIAL IVP SCH (08:15)
[2017-06-29] MEDS: LEXAPRO PO SCH (08:15)
[2017-06-29] MEDS: LOPRESSOR TAB 25 MG PO SCH ×2 (08:15→21:28)
[2017-06-29] MEDS: MEGACE PO SCH ×2 (08:15→21:28)
[2017-06-29] MEDS: ECOTRIN TAB 325 MG PO SCH (08:15)
[2017-06-29] MEDS: NYSTATIN POWDER TOP SCH ×2 (08:15→21:29)
[2017-06-29] MEDS ORDERED: ZINC GLUCONATE 30 MG PO SCH (09:00)
[2017-06-29] MEDS ORDERED: SODIUM CHLORIDE 1 GM PO SCH (09:00)
[2017-06-29] MEDS ORDERED: [UNRECOGNIZED DRUG - OTHER] PO SCH (09:00)
[2017-06-29 09:45] LABS: CKMB % 5.1 % (<4); TROPONIN I 0.27 ng/mL (0-1.5)
[2017-06-29] MEDS: TAB-A-VITE PO SCH (09:46)
[2017-06-29 09:48] LABS: CREATINE KINASE MB 5.2 ng/mL (0-4.0)
--- NOTE | 2017-06-29 10:55 | DR.UPDATE ---
H&P Update History and Physical Update: ' H&P WAS COMPLETED WITH HER LAST ADMISSION ON 06/14/17. SHE WAS PLACED IN [facility] AFTER DISCHARGE FROM HER LAST VISIT. SHE WAS TRANSPORTED TO THE ER BY STAFF THIS MORNING WITH COMPLAINTS OF ELEVATED PULSE, ELEVATED RESPIRATIONS, AND DECREASED SATURATIONS. PATIENT WAS NOTED WITH COMPLAINTS OF RIGHT SIDED CHEST PAIN AND SHORTNESS OF BREATH. ON ARRIVAL TO ER, VITALS WERE 97.5-108-18-93%-135/64. CBC WNL. CMP REPORTED SODIUM 127, POTASSIUM 5.2, CHLORIDE 92, BUN 22, CREATININE 0.80, GLUCOSE 155, CALCIUM 7.8, MAGNESIUM 1.4, ALBUMIN 2.7. A CHEST XRAY FROM 06/21/17 REPORTED CARDIOMEGALY WITH CHF, SMALL RIGHT PLEURAL EFFUSION WITH RIGHT BASILAR ATELECTASIS, ALTHOUGH SUPERIMPOSED INFILTRATE CANNOT BE EXCLUDED. SHE WAS GIVEN MAGNESIUM SULFATE 1 GM IV IN ER, A DUONEB AND PROVENTIL TREATMENT. WE ADMITTED PATIENT FOR FURTHER TREATMENT AND EVALUATION. WE STARTED HER ON NS @80ML/HR, ULTRAM 50MG Q6H PRN PAIN, XANAX 0.25MG PO HS PRN, ZOFRAN 4MG IV Q8H PRN, AND SLIDING SCALE INSULIN. ON MORNING ROUNDS, PATIENT WAS ALERT AND ORIENTED, SITTING UP IN BED. SHE HAS COMPLAINTS OF SHORTNESS OF BREATH. LUNGS ARE NOTED WITH WHEEZING BILATERALLY. VITALS THIS AM WERE 97.5-109-22-96%-135/80. WE WILL GIVE PATIENT MAGNESIUM SULFATE 1 GM IV X 1 DOSE AND START KLONOPIN 1MG HS. WE WILL ORDER FOR HER TO WEAR CPAP AT NIGHT. WE WILL RECHECK LABS AND FOLLOW UP WITH PATIENT IN AM. Changes noted: Yes with the following: SEE ABOVE
--- NOTE | 2017-06-29 11:14 | RAD ---
HISTORY: Shortness of breath. Study: Portable chest. Comparison: Chest x-ray dated June 27, 2017. Findings: The trachea is midline. The cardiac silhouette is enlarged, but likely unchanged. Interval worseni ng lung aeration with prominent perihilar vasculature, cephalization of vessels, and diffuse alveola r/interstitial markings. Large right and small left pleural effusions. Likely associated compressive atelectasis. No obvious pneumothorax. The bony thorax is unchanged. IMPRESSION: Interval worsening of pulmonary edema secondary to congestive heart failure. Underlying infiltrate not entirely excluded. Reported By:
[2017-06-29] MEDS: NS 1000 ML 1,000 ML IV PRN (14:01)
[2017-06-29] MEDS: SNACK - Diabetic Appropriate PO SCH (21:13)
[2017-06-29] MEDS: KLONOPIN TAB 1 MG PO SCH (21:28)
[2017-06-29] MEDS: THERMOTABS PO SCH (21:29)
[2017-06-29] MEDS: HumuLIN R SUBCUT PRN (21:35)
[2017-06-29] MEDS: ULTRAM PO PRN (22:37)
[2017-06-30] MEDS: NS 1000 ML 1,000 ML IV PRN ×2 (03:15→19:10)
[2017-06-30 06:14] LABS: BASOPHILS % (AUTO) 0.4 % (0.2-1.0); EOSINOPHILS % (AUTO) 0.5 % (0.9-2.9); HEMATOCRIT 37.3 % (36.0-47.0); HEMOGLOBIN 12.5 g/dL (12.0-16.0); LYMPHOCYTES # (AUTO) 0.9 X10^3/uL (1.3-2.9); LYMPHOCYTES % (AUTO) 17.1 % (21.0-51.0); MEAN CORPUSCULAR HEMOGLOBIN 27.8 pg (27.0-34.0); MEAN CORPUSCULAR HGB CONC 33.6 g/dL (33.0-35.0); MEAN CORPUSCULAR VOLUME 82.9 fL (80.0-100.0); MEAN PLATELET VOLUME 8.9 fL (7.4-11.0); MONOCYTES # (AUTO) 0.7 x10^3/uL (0.3-0.8); MONOCYTES % (AUTO) 12.4 % (0.0-13.0); NEUTROPHILS # (AUTO) 3.7 x10^3/uL (2.2-4.8); NEUTROPHILS % (AUTO) 69.6 % (42.0-75.0); PLATELET COUNT 272 X10^3/uL (150.0-450.0); RED CELL DISTRIBUTION WIDTH 14.8 % (11.6-16.5); WHITE BLOOD COUNT 5.3 X10^3/uL (3.6-10.0)
--- NOTE | 2017-06-30 06:40 | RAD ---
HISTORY: Shortness of breath Study: Chest one view Comparison: June 29, 2017, June 27, 2017 Findings: The heart remains enlarged. The aorta is calcified. Pulmonary venous congestion is present. No resid ual interstitial or alveolar edema is identified. No definite acute alveolar infiltrates are identif ied. There is a right pleural effusion present. There is some subsegmental atelectasis in the right lung base. The bony thorax is unremarkable. IMPRESSION: Cardiomegaly with improving congestive heart failure Right pleural effusion unchanged Subsegmental atelectasis right lung base Reported By:
[2017-06-30] MEDS ORDERED: LEXAPRO ONE ×2 (08:18→09:14)
[2017-06-30 08:39] LABS: ALANINE AMINOTRANSFERASE 60 Units/L (12-78); ALBUMIN 2.7 g/dL (3.4-5.0); ALKALINE PHOSPHATASE 80 Units/L (46-116); ASPARTATE AMINO TRANSFERASE 75 Units/L (15-37); BLOOD UREA NITROGEN 33 mg/dL (7-18); CALCIUM 7.8 mg/dL (8.5-10.1); CARBON DIOXIDE 26.5 mmol/L (21-32); CHLORIDE 93 mmol/L (98-107); COR CA(FOR HYPOALB) 8.8 mg/dL (8.5-10.1); GLUCOSE 96 mg/dL (65-99); TOTAL PROTEIN 6.8 g/dL (6.4-8.2); eGFR BLACK RACES 55 (>60); eGFR NON BLACK RACES 46 (>60)
[2017-06-30 08:51] LABS: SODIUM 124 mmol/L (136-145)
[2017-06-30] MEDS: ECOTRIN TAB 325 MG PO SCH (09:06)
[2017-06-30] MEDS: VITAMIN C PO SCH ×2 (09:06→21:38)
[2017-06-30] MEDS: MEGACE PO SCH ×2 (09:06→21:38)
[2017-06-30] MEDS: TAB-A-VITE PO SCH (09:06)
[2017-06-30] MEDS: ALDACTONE TAB 25 MG PO SCH (09:07)
[2017-06-30] MEDS: LOPRESSOR TAB 25 MG PO SCH ×2 (09:08→21:38)
[2017-06-30] MEDS: PROTONIX INJ 40 MG VIAL IVP SCH (09:08)
[2017-06-30] MEDS: LASIX IVP SCH (09:08)
[2017-06-30] MEDS: LEXAPRO PO SCH (09:15)
[2017-06-30] MEDS: THERMOTABS PO SCH ×2 (09:17→21:39)
[2017-06-30] MEDS: NYSTATIN POWDER TOP SCH ×2 (09:17→21:44)
[2017-06-30 13:08] VITALS: BMI 26.6
--- NOTE | 2017-06-30 14:26 | PCM.PROG ---
Progress Note - Progress Note for Day of Date: 06/30/17 - Subjective Subjective: IS ALERT AND ORIENTED ON MORNING ROUNDS. SHE IS SITTING UP ON SIDE OF BED EATING BREAKFAST. SHE IS ALERT AND ORIENTED. SHE CONTINUES WITH COMPLAINTS OF SHORTENSS OF BREATH. WHEEZING NOTED BILATERALLY ON AUSCULTATION. VITALS THIS AM ARE 97.4-84-20-96%-137/63. CBC REPORTS WBC 5.3, RBC 4.50, HGB 12.5, HCT 37.3. CMP REPORTS SODIUM 124, POTASSIUM 5.8, CHLORIDE 93, BUN 33, CREATININE 1.20, GFR 46, CALCIUM 7.8, AST 75, ALBUMIN 2.7. CK-MB 5.2. CHEST XRAY REPORTS CARDIOMEGALY WITH IMPROVING CHF, RIGHT PLEURAL EFFUSION, AND SUBSEGMENTAL ATELECTASIS RIGHT LUNG BASE. EKG REPORTS SINUS RHYTHM WITH RATE OF 78. WE WILL ORDER FOR PT AND OT AND CONTINUE WITH CURRENT PLAN OF CARE. WE WILL RECHECK LABS AND XRAY AND FOLLOW UP WITH PATIENT IN AM. - Past Medical Family Social History Past Med/Fam/Surg Hx: No changes since H&P Allergies: Allergies acetaminophen [From Darvocet-N] Allergy (Verified 06/28/17 21:26) codeine Allergy (Verified 06/28/17 21:26) hydrocodone [From Lorcet (hydrocodone)] Allergy (Verified 06/28/17 21:26) oxycodone [From Percocet] Allergy (Verified 06/28/17 21:26) propoxyphene [From Darvocet-N] Allergy (Verified 06/28/17 21:26) - Review of Systems ROS: No change since H&P - Vital Signs and I&O's Vital Signs: Temperature 97.3 F Pulse Rate [Right Apical] 81 Respiratory Rate 24 Blood Pressure [Left Arm] 124/55 Blood Pressure [Right Arm] 114/69 O2 Sat by Pulse Oximetry 91 Intake and Output: Intake & Output 06/28/17 06/29/17 06/30/17 07/01/17 11:59 11:59 11:59 11:59 Intake Total 0 2009 Output Total 200 900 Balance -200 1110 - Physical Exam Oriented: Normal. negative: Time, Person, Place, Not Oriented, Unable to test, Other Eyes: Normal. negative: Blurred Vision, Diplopia, Discharge, Pain, Redness, Photophobia, Other Ear: Normal. negative: Right, Left, Swelling, Ecchymosis, Hemotypanum, Abrasion , Laceration Nose: Normal. negative: Injected, Discharge, Blood, Other Throat: Normal. negative: Tonsillar Hypertrophy, Red, Exudate, Dry, Other Respiratory: Right, Left, Wheezes. negative: Normal, Generalized, Superior, Inferior, Diminished, Rales, Rhonchi, OTHER Cardiovascular: Normal : Normal. negative: Dysuria, Hematuria, Frequency, Discharge, Testicular Pain , Bleeding, , Other Auscultation: Bowel Sounds: Normal. negative: Bruit, Absent, Increased, Decreased, High Pitched, Other Palpation: Normal. negative: Spleen Enlarged, Liver Enlarged, Mass Pulsatile, Other Tenderness: Normal. negative: Diffuse, RUQ, RLQ, LUQ, LLQ, Epigastric, Periumbilical, Suprapubic, Mild, Moderate, Severe, Rebound, Guarding, Rigidity, Other Skin: Normal. negative: Decreased Turgur, Rash, Papular, Macular, Maculopapular , Vesicular, Pustular, Petechial, Red, Tender, Hot, Diaphoresis, Wound, Bruising , Ecchymosis, Other Musculoskeletal: Normal. negative: Right, Left, Shoulder, Clavicle, Arm, Elbow , Forearm, Wrist, Hand, Hip, Thigh, Knee, Leg, Ankle, Foot, Back:Thoracic, Back: Lumbar, Back:Midline, Back:Paraspinous, Pelvis, Swelling, Tender, Deformity, Pulse Deficit, Motor Deficit, Sensory Deficit, Instability, Crepitance Psychiatric: Normal. negative: Anxiety, Depression, Agitation, Other Mood Description: Calm. negative: Angry, Apathetic, Depressed, Fearful, Flat, Happy, Hostile, Sad, Suspicious, Withdrawn, Anxious, Appropriate, Labile Affect: Normal. negative: Angry, Anxious, Depressed, Flat, Hysterical, Quiet, Violent Speech Pattern: Clear, Appropriate. negative: Unclear, Inappropriate, Delayed, Slurred, Excessive, Aphasic, Artificially Ventilated - Laboratory and Diagnostics Result Diagrams: 06/30/17 03:50 06/30/17 06:34 Labs: Laboratory WBC 5.3 X10^3/uL (3.6-10.0) 06/30/17 03:50 RBC 4.50 X10^6/uL (3.5-5.4) 06/30/17 03:50 Hgb 12.5 g/dL (12.0-16.0) 06/30/17 03:50 Hct 37.3 % (36.0-47.0) 06/30/17 03:50 MCV 82.9 fL (80.0-100.0) 06/30/17 03:50 MCH 27.8 pg (27.0-34.0) 06/30/17 03:50 MCHC 33.6 g/dL (33.0-35.0) 06/30/17 03:50 RDW 14.8 % (11.6-16.5) 06/30/17 03:50 Plt Count 272 X10^3/uL (150.0-450.0) 06/30/17 03:50 MPV 8.9 fL (7.4-11.0) 06/30/17 03:50 Neut % 69.6 % (42.0-75.0) 06/30/17 03:50 Lymph % 17.1 % (21.0-51.0) L 06/30/17 03:50 [place] % 12.4 % (0.0-13.0) 06/30/17 03:50 Eos % 0.5 % (0.9-2.9) L 06/30/17 03:50 Baso % 0.4 % (0.2-1.0) 06/30/17 03:50 Neut # 3.7 x10^3/uL (2.2-4.8) 06/30/17 03:50 Lymph # 0.9 X10^3/uL (1.3-2.9) L 06/30/17 03:50 [place] # 0.7 x10^3/uL (0.3-0.8) 06/30/17 03:50 Eos # 0.0 x10^3/uL (0.0-0.2) 06/30/17 03:50 Baso # 0.0 X10^3/uL (0.0-0.1) 06/30/17 03:50 Absolute Nucleated RBC 0.1 /100WBC 06/30/17 03:50 INR Target Range - 06/28/17 22:20 INR 1.23 (0.8-1.3) 06/28/17 22:20 PTT 28.4 SECONDS (22.9-36.5) 06/28/17 22:20 PTT Comment - 06/28/17 22:20 Sodium 124 mmol/L (136-145) L* 06/30/17 06:34 Corrected Sodium TNP 06/30/17 06:34 Potassium 5.8 mmol/L (3.5-5.1) H 06/30/17 06:34 Chloride 93 mmol/L (98-107) L 06/30/17 06:34 Carbon Dioxide 26.5 mmol/L (21-32) 06/30/17 06:34 BUN 33 mg/dL (7-18) H 06/30/17 06:34 Creatinine 1.20 mg/dL (0.55-1.02) H 06/30/17 06:34 Est GFR (MDRD) Af Amer 55 (>60) L 06/30/17 06:34 Est GFR (MDRD) Non-Af 46 (>60) L 06/30/17 06:34 Glucose 96 mg/dL (65-99) 06/30/17 06:34 Calcium 7.8 mg/dL (8.5-10.1) L 06/30/17 06:34 Corrected Calcium 8.8 mg/dL (8.5-10.1) 06/30/17 06:34 Phosphorus 3.7 mg/dL (2.6-4.7) 06/28/17 22:20 Magnesium 2.3 mg/dL (1.7-2.9) 06/30/17 08:10 Total Bilirubin 0.50 mg/dL (0.2-1.0) 06/30/17 06:34 AST 75 Units/L (15-37) H 06/30/17 06:34 ALT 60 Units/L (12-78) 06/30/17 06:34 Alkaline Phosphatase 80 Units/L (46-116) 06/30/17 06:34 Creatine Kinase 102 Units/L (26-192) 06/29/17 08:39 CK-MB (CK-2) 5.2 ng/mL (0-4.0) H* 06/29/17 08:39 CK/CKMB % Calc 5.1 % (<4) 06/29/17 08:39 Troponin I 0.27 ng/mL (0-1.5) 06/29/17 08:39 Total Protein 6.8 g/dL (6.4-8.2) 06/30/17 06:34 Albumin 2.7 g/dL (3.4-5.0) L 06/30/17 06:34 Globulin 4.1 g/dL (2.5-4.5) 06/30/17 06:34 Albumin/Globulin Ratio 0.7 Ratio (1.1-2.1) L 06/30/17 06:34 - Plan (1) Hyponatremia Status: Acute (2) CHF (congestive heart failure) Status: Chronic Qualifiers: Congestive heart failure type: unspecified congestive heart failure type Congestive heart failure chronicity: acute Qualified Code(s): I50.9 - Heart failure, unspecified
[2017-06-30] MEDS: HumuLIN R SUBCUT PRN ×2 (17:42→21:38)
[2017-06-30] MEDS: KLONOPIN TAB 1 MG PO SCH (21:38)
[2017-06-30] MEDS: SNACK - Diabetic Appropriate PO SCH (21:39)
[2017-07-01 06:04] LABS: ALANINE AMINOTRANSFERASE 109 Units/L (12-78); ALBUMIN 2.4 g/dL (3.4-5.0); ALKALINE PHOSPHATASE 96 Units/L (46-116); ASPARTATE AMINO TRANSFERASE 120 Units/L (15-37); BLOOD UREA NITROGEN 39 mg/dL (7-18); CALCIUM 7.8 mg/dL (8.5-10.1); CARBON DIOXIDE 22.3 mmol/L (21-32); CHLORIDE 96 mmol/L (98-107); COR CA(FOR HYPOALB) 9.1 mg/dL (8.5-10.1); COR NA(FOR HYPERGLY) 128 mmol/L (136-145); CREATININE 0.98 mg/dL (0.55-1.02); GLUCOSE 127 mg/dL (65-99); SODIUM 127 mmol/L (136-145); TOTAL PROTEIN 6.1 g/dL (6.4-8.2); eGFR BLACK RACES > 60 (>60); eGFR NON BLACK RACES 58 (>60)
--- NOTE | 2017-07-01 06:07 | RAD ---
HISTORY: Shortness of breath Study: Chest one view Comparison: June 30, 2017 Findings: The heart remains enlarged. The aorta is calcified. No definite congestive heart failure is identifi ed. There is a slight increase in the right pleural effusion being followed. The pleural effusion ob scures the right middle and right lower lobes. There is some subsegmental atelectasis present in the right mid lung. The right upper lung field is clear. The left lung is clear with the exception of s ome subsegmental atelectasis. The bony thorax is unremarkable. IMPRESSION: Cardiomegaly without congestive heart failure Increasing right pleural effusion obscuring the lung markings in the right middle and right lower lo bes Subsegmental atelectasis bilaterally as described Reported By:
[2017-07-01 06:11] LABS: BASOPHILS % (AUTO) 0.5 % (0.2-1.0); EOSINOPHILS % (AUTO) 0.6 % (0.9-2.9); HEMATOCRIT 38.6 % (36.0-47.0); HEMOGLOBIN 12.9 g/dL (12.0-16.0); LYMPHOCYTES # (AUTO) 0.7 X10^3/uL (1.3-2.9); LYMPHOCYTES % (AUTO) 10.7 % (21.0-51.0); MEAN CORPUSCULAR HEMOGLOBIN 28.1 pg (27.0-34.0); MEAN CORPUSCULAR HGB CONC 33.5 g/dL (33.0-35.0); MEAN CORPUSCULAR VOLUME 83.9 fL (80.0-100.0); MEAN PLATELET VOLUME 9.1 fL (7.4-11.0); MONOCYTES # (AUTO) 0.8 x10^3/uL (0.3-0.8); MONOCYTES % (AUTO) 11.4 % (0.0-13.0); NEUTROPHILS # (AUTO) 5.3 x10^3/uL (2.2-4.8); NEUTROPHILS % (AUTO) 76.8 % (42.0-75.0); PLATELET COUNT 286 X10^3/uL (150.0-450.0); RED BLOOD COUNT 4.61 X10^6/uL (3.5-5.4)
[2017-07-01] MEDS: ULTRAM PO PRN (08:49)
[2017-07-01] MEDS: ECOTRIN TAB 325 MG PO SCH (08:50)
[2017-07-01] MEDS: VITAMIN C PO SCH ×2 (08:50→21:51)
[2017-07-01] MEDS: MEGACE PO SCH ×2 (08:50→21:52)
[2017-07-01] MEDS: LASIX IVP SCH ×2 (08:51→21:52)
[2017-07-01] MEDS: PROTONIX INJ 40 MG VIAL IVP SCH (08:52)
[2017-07-01] MEDS: LOPRESSOR TAB 25 MG PO SCH ×2 (08:52→21:52)
[2017-07-01] MEDS: TAB-A-VITE PO SCH (08:52)
[2017-07-01] MEDS: THERMOTABS PO SCH ×2 (08:57→21:52)
[2017-07-01] MEDS: NYSTATIN POWDER TOP SCH ×2 (10:28→21:52)
[2017-07-01] MEDS ORDERED: LASIX IVP SCH (11:00)
[2017-07-01] MEDS: ALBUMIN HUMAN 25%- 100ML 200 ML IV SCH (11:21)
[2017-07-01] MEDS: NS 1000 ML 1,000 ML IV PRN (11:45)
--- NOTE | 2017-07-01 12:21 | PCM.PROG ---
Progress Note - Progress Note for Day of Date: 07/01/17 - Subjective Subjective: IS ALERT AND ORIENTED ON MORNING ROUNDS. SHE IS SITTING UP IN CHAIR EATING BREAKFAST. SHE IS ALERT AND ORIENTED. SHE CONTINUES WITH COMPLAINTS OF SHORTENSS OF BREATH. WHEEZING NOTED BILATERALLY ON AUSCULTATION. VITALS THIS AM ARE 97.9-36-79-99-126/58. CBC REPORTS WBC 7.0, HGB 12.9, HCT 38.6. CMP REPORTS SODIUM 127, POTASSIUM 6.1, BUN 39, CREATININE 0.98, GLUCOSE 127, CALCIUM 7.8, AST 120, ALT 109, TOTAL PROTEIN 6.1, ALBUMIN 2.4. CHEST XRAY REPORTS CARDIOMEGALY WITHOUT CHF, INCREASING RIGHT PLEURAL EFFUSION, AND SUBSEGMENTAL ATELECTASIS RIGHT LUNG BASE. WE WILL ORDER FOR PT AND OT AND CONTINUE WITH CURRENT PLAN OF CARE. WE WILL START ALBUMIN 25% DAILY AND LASIS 40MG IV Q12H X 2 DOSES. WE WILL RECHECK LABS AND XRAY AND FOLLOW UP WITH PATIENT IN AM. - Past Medical Family Social History Past Med/Fam/Surg Hx: No changes since H&P Allergies: Allergies acetaminophen [From Darvocet-N] Allergy (Verified 06/28/17 21:26) codeine Allergy (Verified 06/28/17 21:26) hydrocodone [From Lorcet (hydrocodone)] Allergy (Verified 06/28/17 21:26) oxycodone [From Percocet] Allergy (Verified 06/28/17 21:26) propoxyphene [From Darvocet-N] Allergy (Verified 06/28/17 21:26) - Review of Systems ROS: No change since H&P - Vital Signs and I&O's Vital Signs: Temperature 97.6 F Pulse Rate [Right Apical] 81 Pulse Rate 70 Respiratory Rate 26 Blood Pressure [Left Arm] 124/55 Blood Pressure [Right Arm] 126/58 O2 Sat by Pulse Oximetry 99 Intake and Output: Intake & Output 06/29/17 06/30/17 07/01/17 07/02/17 11:59 11:59 11:59 11:59 Intake Total 0 20090 Output Total 200 900 100 Balance -200 1110 2620 - Physical Exam Oriented: Normal. negative: Time, Person, Place, Not Oriented, Unable to test, Other Eyes: Normal. negative: Blurred Vision, Diplopia, Discharge, Pain, Redness, Photophobia, Other Ear: Normal. negative: Right, Left, Swelling, Ecchymosis, Hemotypanum, Abrasion , Laceration Nose: Normal. negative: Injected, Discharge, Blood, Other Throat: Normal. negative: Tonsillar Hypertrophy, Red, Exudate, Dry, Other Respiratory: Right, Left, Wheezes. negative: Normal, Generalized, Superior, Inferior, Diminished, Rales, Rhonchi, OTHER Cardiovascular: Normal : Normal. negative: Dysuria, Hematuria, Frequency, Discharge, Testicular Pain , Bleeding, , Other Auscultation: Bowel Sounds: Normal. negative: Bruit, Absent, Increased, Decreased, High Pitched, Other Tenderness: Normal. negative: Diffuse, RUQ, RLQ, LUQ, LLQ, Epigastric, Periumbilical, Suprapubic, Mild, Moderate, Severe, Rebound, Guarding, Rigidity, Other Skin: Normal. negative: Decreased Turgur, Rash, Papular, Macular, Maculopapular , Vesicular, Pustular, Petechial, Red, Tender, Hot, Diaphoresis, Wound, Bruising , Ecchymosis, Other Musculoskeletal: Normal. negative: Right, Left, Shoulder, Clavicle, Arm, Elbow , Forearm, Wrist, Hand, Hip, Thigh, Knee, Leg, Ankle, Foot, Back:Thoracic, Back: Lumbar, Back:Midline, Back:Paraspinous, Pelvis, Swelling, Tender, Deformity, Pulse Deficit, Motor Deficit, Sensory Deficit, Instability, Crepitance Psychiatric: Normal. negative: Anxiety, Depression, Agitation, Other Mood Description: Calm. negative: Angry, Apathetic, Depressed, Fearful, Flat, Happy, Hostile, Sad, Suspicious, Withdrawn, Anxious, Appropriate, Labile Affect: Normal. negative: Angry, Anxious, Depressed, Flat, Hysterical, Quiet, Violent Speech Pattern: Clear, Appropriate - Laboratory and Diagnostics Result Diagrams: 07/01/17 03:50 07/01/17 03:50 Labs: Laboratory WBC 7.0 X10^3/uL (3.6-10.0) 07/01/17 03:50 RBC 4.61 X10^6/uL (3.5-5.4) 07/01/17 03:50 Hgb 12.9 g/dL (12.0-16.0) 07/01/17 03:50 Hct 38.6 % (36.0-47.0) 07/01/17 03:50 MCV 83.9 fL (80.0-100.0) 07/01/17 03:50 MCH 28.1 pg (27.0-34.0) 07/01/17 03:50 MCHC 33.5 g/dL (33.0-35.0) 07/01/17 03:50 RDW 15.0 % (11.6-16.5) 07/01/17 03:50 Plt Count 286 X10^3/uL (150.0-450.0) 07/01/17 03:50 MPV 9.1 fL (7.4-11.0) 07/01/17 03:50 Neut % 76.8 % (42.0-75.0) H 07/01/17 03:50 Lymph % 10.7 % (21.0-51.0) L 07/01/17 03:50 Gregg % 11.4 % (0.0-13.0) 07/01/17 03:50 Eos % 0.6 % (0.9-2.9) L 07/01/17 03:50 Baso % 0.5 % (0.2-1.0) 07/01/17 03:50 Neut # 5.3 x10^3/uL (2.2-4.8) H 07/01/17 03:50 Lymph # 0.7 X10^3/uL (1.3-2.9) L 07/01/17 03:50 Gregg # 0.8 x10^3/uL (0.3-0.8) 07/01/17 03:50 Eos # 0.0 x10^3/uL (0.0-0.2) 07/01/17 03:50 Baso # 0.0 X10^3/uL (0.0-0.1) 07/01/17 03:50 Absolute Nucleated RBC 0.0 /100WBC 07/01/17 03:50 INR Target Range - 06/28/17 22:20 INR 1.23 (0.8-1.3) 06/28/17 22:20 PTT 28.4 SECONDS (22.9-36.5) 06/28/17 22:20 PTT Comment - 06/28/17 22:20 Sodium 127 mmol/L (136-145) L 07/01/17 03:50 Corrected Sodium 128 mmol/L (136-145) L 07/01/17 03:50 Potassium 6.1 mmol/L (3.5-5.1) H* 07/01/17 03:50 Chloride 96 mmol/L (98-107) L 07/01/17 03:50 Carbon Dioxide 22.3 mmol/L (21-32) 07/01/17 03:50 BUN 39 mg/dL (7-18) H 07/01/17 03:50 Creatinine 0.98 mg/dL (0.55-1.02) 07/01/17 03:50 Est GFR (MDRD) Af Amer > 60 (>60) 07/01/17 03:50 Est GFR (MDRD) Non-Af 58 (>60) L 07/01/17 03:50 Glucose 127 mg/dL (65-99) H 07/01/17 03:50 Calcium 7.8 mg/dL (8.5-10.1) L 07/01/17 03:50 Corrected Calcium 9.1 mg/dL (8.5-10.1) 07/01/17 03:50 Phosphorus 3.7 mg/dL (2.6-4.7) 06/28/17 22:20 Magnesium 2.3 mg/dL (1.7-2.9) 06/30/17 08:10 Total Bilirubin 0.30 mg/dL (0.2-1.0) 07/01/17 03:50 AST 120 Units/L (15-37) H 07/01/17 03:50 ALT 109 Units/L (12-78) H 07/01/17 03:50 Alkaline Phosphatase 96 Units/L (46-116) 07/01/17 03:50 Creatine Kinase 102 Units/L (26-192) 06/29/17 08:39 CK-MB (CK-2) 5.2 ng/mL (0-4.0) H* 06/29/17 08:39 CK/CKMB % Calc 5.1 % (<4) 06/29/17 08:39 Troponin I 0.27 ng/mL (0-1.5) 06/29/17 08:39 Total Protein 6.1 g/dL (6.4-8.2) L 07/01/17 03:50 Albumin 2.4 g/dL (3.4-5.0) L 07/01/17 03:50 Globulin 3.7 g/dL (2.5-4.5) 07/01/17 03:50 Albumin/Globulin Ratio 0.6 Ratio (1.1-2.1) L 07/01/17 03:50 - Plan (1) Hyponatremia Status: Acute Plan: NS @ 80ML/HR, CONTINUE SALT TABLETS, CONTINUE TO MONITOR PATIENT (2) CHF (congestive heart failure) Status: Chronic Qualifiers: Congestive heart failure type: unspecified congestive heart failure type Congestive heart failure chronicity: acute Qualified Code(s): I50.9 - Heart failure, unspecified Plan: LASIX 40MG IV BID X 2 DOSES, MONITOR CHEST XRAY AND LABS, CONTINUE TO MONITOR PATIENT (3) Hypoalbuminemia Status: Acute Plan: ALBUMIN 25% DAILY, MONITOR LABS
[2017-07-01] MEDS: KLONOPIN TAB 1 MG PO SCH (21:51)
[2017-07-01] MEDS: SNACK - Diabetic Appropriate PO SCH (21:53)
[2017-07-02 07:08] LABS: ALANINE AMINOTRANSFERASE 97 Units/L (12-78); ALBUMIN 3.4 g/dL (3.4-5.0); ALKALINE PHOSPHATASE 97 Units/L (46-116); ASPARTATE AMINO TRANSFERASE 101 Units/L (15-37); BLOOD UREA NITROGEN 38 mg/dL (7-18); CALCIUM 8.2 mg/dL (8.5-10.1); CARBON DIOXIDE 25.4 mmol/L (21-32); CHLORIDE 96 mmol/L (98-107); CREATININE 1.05 mg/dL (0.55-1.02); GLUCOSE 86 mg/dL (65-99); SODIUM 129 mmol/L (136-145); TOTAL PROTEIN 6.9 g/dL (6.4-8.2); eGFR BLACK RACES > 60 (>60); eGFR NON BLACK RACES 53 (>60)
--- NOTE | 2017-07-02 07:18 | RAD ---
HISTORY: Shortness of breath. Study: Portable chest. Comparison: Chest x-ray dated July 01, 2017. Findings: Cardiomegaly appears unchanged. Right pleural effusion with associated compressive atelectasis appea rs unchanged given technique. Persistent eventration of the right hemidiaphragm. The left lung is cl ear. No obvious pneumothorax. Calcified and ectatic thoracic aorta. The osseous structures appear un changed. IMPRESSION: No significant change. Reported By:
[2017-07-02 07:28] LABS: BASOPHILS # (AUTO) 0.1 X10^3/uL (0.0-0.1); BASOPHILS % (AUTO) 0.8 % (0.2-1.0); EOSINOPHILS # (AUTO) 0.1 x10^3/uL (0.0-0.2); EOSINOPHILS % (AUTO) 1.6 % (0.9-2.9); HEMATOCRIT 41.9 % (36.0-47.0); HEMOGLOBIN 13.7 g/dL (12.0-16.0); LYMPHOCYTES # (AUTO) 1.5 X10^3/uL (1.3-2.9); LYMPHOCYTES % (AUTO) 22.5 % (21.0-51.0); MEAN CORPUSCULAR HEMOGLOBIN 27.5 pg (27.0-34.0); MEAN CORPUSCULAR HGB CONC 32.7 g/dL (33.0-35.0); MEAN PLATELET VOLUME 9.1 fL (7.4-11.0); MONOCYTES % (AUTO) 14.9 % (0.0-13.0); NEUTROPHILS % (AUTO) 60.2 % (42.0-75.0); PLATELET COUNT 301 X10^3/uL (150.0-450.0); RED BLOOD COUNT 4.99 X10^6/uL (3.5-5.4); RED CELL DISTRIBUTION WIDTH 15.1 % (11.6-16.5); WHITE BLOOD COUNT 6.6 X10^3/uL (3.6-10.0)
[2017-07-02 07:53] LABS: BAND NEUTROPHILS % 1 % (0-10); PLATELET MORPHOLOGY COMMENT NORMAL (NORMAL)
[2017-07-02] MEDS ORDERED: LASIX IVP SCH (09:00)
[2017-07-02] MEDS: ALBUMIN HUMAN 25%- 100ML 200 ML IV SCH (09:16)
[2017-07-02] MEDS: PROTONIX INJ 40 MG VIAL IVP SCH (09:16)
[2017-07-02] MEDS: THERMOTABS PO SCH (09:16)
[2017-07-02] MEDS: MEGACE PO SCH ×2 (09:17→21:56)
[2017-07-02] MEDS: LASIX IVP SCH (09:17)
[2017-07-02] MEDS: ECOTRIN TAB 325 MG PO SCH (09:17)
[2017-07-02] MEDS: VITAMIN C PO SCH ×2 (09:17→21:56)
[2017-07-02] MEDS: LOPRESSOR TAB 25 MG PO SCH ×2 (09:17→21:57)
[2017-07-02] MEDS: TAB-A-VITE PO SCH (09:17)
[2017-07-02] MEDS: NYSTATIN POWDER TOP SCH ×2 (09:18→21:57)
[2017-07-02] MEDS ORDERED: PHARMACY CONSULT - DOSE _____ XX SCH (10:00)
[2017-07-02] MEDS ORDERED: SODIUM CHL HYPERTONIC ** 3% ** 500 ML IV SCH (11:00)
[2017-07-02] MEDS: XANAX PO PRN (21:57)
[2017-07-02] MEDS: KLONOPIN TAB 1 MG PO SCH (21:57)
[2017-07-02] MEDS: SNACK - Diabetic Appropriate PO SCH (21:59)
[2017-07-03] MEDS: THERMOTABS PO SCH ×3 (02:03→21:54)
[2017-07-03 06:12] LABS: BASOPHILS # (AUTO) 0.1 X10^3/uL (0.0-0.1); BASOPHILS % (AUTO) 1.4 % (0.2-1.0); EOSINOPHILS % (AUTO) 0.5 % (0.9-2.9); HEMATOCRIT 41.9 % (36.0-47.0); HEMOGLOBIN 13.8 g/dL (12.0-16.0); LYMPHOCYTES # (AUTO) 1.1 X10^3/uL (1.3-2.9); MEAN CORPUSCULAR HEMOGLOBIN 27.7 pg (27.0-34.0); MEAN CORPUSCULAR HGB CONC 32.9 g/dL (33.0-35.0); MEAN CORPUSCULAR VOLUME 84.2 fL (80.0-100.0); MEAN PLATELET VOLUME 8.8 fL (7.4-11.0); MONOCYTES # (AUTO) 0.9 x10^3/uL (0.3-0.8); NEUTROPHILS # (AUTO) 4.7 x10^3/uL (2.2-4.8); NEUTROPHILS % (AUTO) 69.1 % (42.0-75.0); PLATELET COUNT 330 X10^3/uL (150.0-450.0); RED BLOOD COUNT 4.98 X10^6/uL (3.5-5.4); RED CELL DISTRIBUTION WIDTH 15.1 % (11.6-16.5); WHITE BLOOD COUNT 6.8 X10^3/uL (3.6-10.0)
[2017-07-03 07:14] LABS: ALANINE AMINOTRANSFERASE 111 Units/L (12-78); ALBUMIN 3.9 g/dL (3.4-5.0); ALKALINE PHOSPHATASE 107 Units/L (46-116); BLOOD UREA NITROGEN 37 mg/dL (7-18); CALCIUM 8.7 mg/dL (8.5-10.1); CARBON DIOXIDE 25.4 mmol/L (21-32); CHLORIDE 98 mmol/L (98-107); CREATININE 1.09 mg/dL (0.55-1.02); GLUCOSE 67 mg/dL (65-99); SODIUM 135 mmol/L (136-145); TOTAL PROTEIN 7.3 g/dL (6.4-8.2); eGFR BLACK RACES > 60 (>60); eGFR NON BLACK RACES 51 (>60)
[2017-07-03 07:15] LABS: ASPARTATE AMINO TRANSFERASE 108 Units/L (15-37)
[2017-07-03] MEDS: LOPRESSOR TAB 25 MG PO SCH ×2 (10:39→21:53)
[2017-07-03] MEDS: ECOTRIN TAB 325 MG PO SCH (10:40)
[2017-07-03] MEDS: VITAMIN C PO SCH ×2 (10:41→21:54)
[2017-07-03] MEDS: TAB-A-VITE PO SCH (10:42)
[2017-07-03] MEDS: MEGACE PO SCH ×2 (10:43→21:53)
[2017-07-03] MEDS: PROTONIX INJ 40 MG VIAL IVP SCH (10:44)
[2017-07-03] MEDS: ALBUMIN HUMAN 25%- 100ML 200 ML IV SCH (10:44)
[2017-07-03] MEDS ORDERED: LASIX IVP ONE ×2 (11:28→21:00)
[2017-07-03] MEDS: NS 1000 ML 1,000 ML IV SCH ×2 (12:37→13:13)
[2017-07-03] MEDS: NYSTATIN POWDER TOP SCH ×2 (13:11→21:54)
[2017-07-03] MEDS ORDERED: BUTT CREAM (COMPOUND) TOP PRN (14:56)
[2017-07-03] MEDS: XANAX PO PRN (21:53)
[2017-07-03] MEDS: ULTRAM PO PRN (21:53)
[2017-07-03] MEDS: KLONOPIN TAB 1 MG PO SCH (21:53)
[2017-07-03] MEDS: SNACK - Diabetic Appropriate PO SCH (21:55)
[2017-07-04 06:03] LABS: ALANINE AMINOTRANSFERASE 78 Units/L (12-78); ALBUMIN 3.7 g/dL (3.4-5.0); ALKALINE PHOSPHATASE 84 Units/L (46-116); ASPARTATE AMINO TRANSFERASE 67 Units/L (15-37); BLOOD UREA NITROGEN 33 mg/dL (7-18); CALCIUM 8.6 mg/dL (8.5-10.1); CARBON DIOXIDE 27.3 mmol/L (21-32); CHLORIDE 100 mmol/L (98-107); CREATININE 1.01 mg/dL (0.55-1.02); GLUCOSE 80 mg/dL (65-99); SODIUM 138 mmol/L (136-145); TOTAL PROTEIN 6.8 g/dL (6.4-8.2); eGFR BLACK RACES > 60 (>60); eGFR NON BLACK RACES 56 (>60)
[2017-07-04 06:07] LABS: BASOPHILS # (AUTO) 0.1 X10^3/uL (0.0-0.1); BASOPHILS % (AUTO) 0.9 % (0.2-1.0); EOSINOPHILS # (AUTO) 0.1 x10^3/uL (0.0-0.2); HEMATOCRIT 40.7 % (36.0-47.0); HEMOGLOBIN 13.7 g/dL (12.0-16.0); LYMPHOCYTES # (AUTO) 1.4 X10^3/uL (1.3-2.9); MEAN CORPUSCULAR HEMOGLOBIN 28.1 pg (27.0-34.0); MEAN CORPUSCULAR HGB CONC 33.6 g/dL (33.0-35.0); MEAN CORPUSCULAR VOLUME 83.4 fL (80.0-100.0); MEAN PLATELET VOLUME 8.3 fL (7.4-11.0); MONOCYTES % (AUTO) 10.4 % (0.0-13.0); NEUTROPHILS # (AUTO) 6.9 x10^3/uL (2.2-4.8); NEUTROPHILS % (AUTO) 72.7 % (42.0-75.0); PLATELET COUNT 301 X10^3/uL (150.0-450.0); RED BLOOD COUNT 4.88 X10^6/uL (3.5-5.4); RED CELL DISTRIBUTION WIDTH 15.2 % (11.6-16.5); WHITE BLOOD COUNT 9.5 X10^3/uL (3.6-10.0)
[2017-07-04] MEDS: NS 1000 ML 1,000 ML IV SCH (06:09)
--- NOTE | 2017-07-04 06:39 | RAD ---
HISTORY: Shortness of breath Study: Chest one view Comparison: July 02, 2017, July 01, 2017 Findings: The heart remains enlarged. No definite congestive heart failure is noted. The aorta is calcified. R ight pleural effusion appears to be decreased when compared with the prior examination. Opacity in t he right lung base may be due to residual fluid or infiltrate. The remainder of the lung greene are clear with the exception of bibasilar subsegmental atelectasis. The upper lung greene are clear. The bony thorax is unremarkable. IMPRESSION: Decreasing right pleural effusion when compared with prior examinations Cardiomegaly without congestive heart failure Bibasilar subsegmental atelectasis Reported By:
[2017-07-04] MEDS: ALBUMIN HUMAN 25%- 100ML 200 ML IV SCH (09:33)
[2017-07-04] MEDS: LOPRESSOR TAB 25 MG PO SCH (09:34)
[2017-07-04] MEDS: MEGACE PO SCH (09:34)
[2017-07-04] MEDS: ECOTRIN TAB 325 MG PO SCH (09:34)
[2017-07-04] MEDS: VITAMIN C PO SCH (09:35)
[2017-07-04] MEDS: TAB-A-VITE PO SCH (09:36)
[2017-07-04] MEDS: PROTONIX INJ 40 MG VIAL IVP SCH (09:36)
[2017-07-04] MEDS: NYSTATIN POWDER TOP SCH (09:36)
[2017-07-04] MEDS: THERMOTABS PO SCH (09:43)
[2017-07-04 15:27] VITALS: BP 124/89
--- NOTE | 2017-07-04 23:08 | DR.CARTERD ---
- Discharge Summary for: Discharge Summary for Date of:: 07/04/17 - Admission Date Date of Admission: 06/29/17 - Admission Diagnoses Admission Diagnosis: (1) Hyponatremia (2) CHF (congestive heart failure) - Discharge Date Discharge Date: 07/04/17 - Discharge Diagnoses Discharge Diagnosis: (1) Hyponatremia (2) CHF (congestive heart failure) (3) Hypoalbuminemia - Hospital Course Hospital Course: DAY ONE OF HOSPITAL STAY, ' WAS RECENTLY HOSPITALIZED ON 06/14/17 AND WAS PLACED IN [facility] AFTER DISCHARGE FROM HER LAST VISIT. SHE WAS TRANSPORTED TO THE ER BY STAFF ON 06/29/17 WITH COMPLAINTS OF ELEVATED PULSE, ELEVATED RESPIRATIONS, AND DECREASED SATURATIONS. PATIENT WAS NOTED WITH COMPLAINTS OF RIGHT SIDED CHEST PAIN AND SHORTNESS OF BREATH. ON ARRIVAL TO ER, VITALS WERE 97.5-108-18-93%-135/64. CBC WNL. CMP REPORTED SODIUM 127, POTASSIUM 5.2, CHLORIDE 92, BUN 22, CREATININE 0.80, GLUCOSE 155, CALCIUM 7.8, MAGNESIUM 1.4, ALBUMIN 2.7. A CHEST XRAY FROM 06/21/17 REPORTED CARDIOMEGALY WITH CHF, SMALL RIGHT PLEURAL EFFUSION WITH RIGHT BASILAR ATELECTASIS, ALTHOUGH SUPERIMPOSED INFILTRATE CANNOT BE EXCLUDED. SHE WAS GIVEN MAGNESIUM SULFATE 1 GM IV IN ER, A DUONEB AND PROVENTIL TREATMENT. WE ADMITTED PATIENT FOR FURTHER TREATMENT AND EVALUATION. WE STARTED HER ON NS @80ML/HR, ULTRAM 50MG Q6H PRN PAIN, XANAX 0.25MG PO HS PRN, ZOFRAN 4MG IV Q8H PRN, AND SLIDING SCALE INSULIN. ON MORNING ROUNDS, PATIENT WAS ALERT AND ORIENTED, SITTING UP IN BED. SHE HAD COMPLAINTS OF SHORTNESS OF BREATH. LUNGS WERE NOTED WITH WHEEZING BILATERALLY. VITALS WERE 97.5-109-22-96%-135/80. WE ADMINISTERED PATIENT MAGNESIUM SULFATE 1 GM IV X 1 DOSE AND STARTED KLONOPIN 1MG HS. WE STARTED CPAP AT NIGHT. DAY TWO OF HOSPITAL STAY, WAS ALERT AND ORIENTED ON MORNING ROUNDS. SHE WAS SITTING UP ON SIDE OF BED EATING BREAKFAST. SHE CONTINUED WITH COMPLAINTS OF SHORTNESS OF BREATH. WHEEZING NOTED BILATERALLY ON AUSCULTATION. VITALS WERE 97.4-84-20-96%-137/63. CBC REPORTED WBC 5.3, RBC 4.50, HGB 12.5, HCT 37.3. CMP REPORTED SODIUM 124, POTASSIUM 5.8, CHLORIDE 93, BUN 33, CREATININE 1.20, GFR 46, CALCIUM 7.8, AST 75, ALBUMIN 2.7. CK-MB 5.2. CHEST XRAY REPORTED CARDIOMEGALY WITH IMPROVING CHF, RIGHT PLEURAL EFFUSION, AND SUBSEGMENTAL ATELECTASIS RIGHT LUNG BASE. EKG REPORTED SINUS RHYTHM WITH RATE OF 78. WE STARTED PT AND OT AND CONTINUED TREATMENT. DAY THREE OF HOSPITAL STAY, WAS ALERT AND ORIENTED ON MORNING ROUNDS. SHE WAS SITTING UP IN CHAIR EATING BREAKFAST. SHE CONTINUED WITH COMPLAINTS OF SHORTNESS OF BREATH. WHEEZING NOTED BILATERALLY ON AUSCULTATION. VITALS WERE 97.9-26-39-99-126/58. CBC REPORTED WBC 7.0, HGB 12.9, HCT 38.6. CMP REPORTED SODIUM 127, POTASSIUM 6.1, BUN 39, CREATININE 0.98, GLUCOSE 127, CALCIUM 7.8, AST 120, ALT 109, TOTAL PROTEIN 6.1, ALBUMIN 2.4. CHEST XRAY REPORTED CARDIOMEGALY WITHOUT CHF, INCREASING RIGHT PLEURAL EFFUSION, AND SUBSEGMENTAL ATELECTASIS RIGHT LUNG BASE. WE STARTED ALBUMIN 25% DAILY AND LASIX 40MG IV Q12H X 2 DOSES. DAY FOUR AND FIVE OF HOSPITAL STAY, DR. ARNOLD WAS HEALTH SUPPORT SPECIALIST AND PATIENT WAS STARTED ON 3% SALINE. LABS WERE MONITORED AND SHOWED SLIGHT IMPROVEMENT. DAY SIX OF HOSPITAL STAY, SENIOR CARE PLACEMENT WAS DISCUSSED WITH FAMILY DUE TO INCREASED CARE WITH RESPIRATORY DEMANDS. FAMILY WAS IN AGREEMENT. WE ALSO DISCUSSED CODE STATUS AND FAMILY REQUESTED DNR STATUS. PATIENT'S SODIUM WAS 138 AND WE PLANNED FOR DISCHARGE. INSTRUCTIONS FOR MEDICATIONS AND FOLLOW UP GIVEN TO PATIENT, FAMILY, AND STAFF. ALL VOICED UNDERSTANDING. PATIENT WAS DISCHARGED TO [facility] IN STABLE CONDITION WITH STAFF. - Discharge Medications Discharge Medications: Ascorbic Acid [VITAMIN C tab 500 mg *] 500 mg PO BID 06/28/17 [History] Multivitamin [Multi-Vitamin Daily] 1 tab PO DAILY 06/28/17 [History] Nystatin (Topical) [NYSTATIN POWDER *] 1 applic TOP BID 06/28/17 [History] Ondansetron HCl [ZOFRAN TAB 4 MG *] 4 mg PO Q6H PRN 06/28/17 [History] Sodium Chloride 1 gm PO BID 06/28/17 [History] Tramadol HCl [ULTRAM 50 MG *] 50 mg PO Q6H PRN 06/28/17 [History] Zinc Gluconate [Elemental Zinc] 30 mg PO DAILY 06/28/17 [History] Alprazolam [XANAX 0.25 MG *] 0.25 mg PO HS PRN tab 07/04/17 [Rx] - Discharge Disposition Discharge Disposition: WE WILL FOLLOW UP WITH PATIENT IN ONE WEEK AT SENIOR CARE.
== END 2017-07-04 14:00 | DRG 640 ==
LOC: ER 21:18 → MED/SURG 06-29 00:24
PROVIDERS: ADMIT Obstetrics & Gynecology Obstetrics; ATTEND Internal Medicine
DX: E87.1 Hypo-osmolality and hyponatremia (principal); I50.9 Heart failure, unspecified; J81.0 Acute pulmonary edema; R07.89 Other chest pain; E88.09 Other disorders of plasma-protein metabolism, not elsewhere classified; J90 Pleural effusion, not elsewhere classified; J98.11 Atelectasis; R06.02 Shortness of breath; R94.31 Abnormal electrocardiogram [ECG] [EKG]
CPT/HCPCS: 36415; 71010; 80053; 82550; 82553; 83735; 84100; 84484; 85025; 85610; 85730; 93005; 94640; 94660; 94760; 96365; 97535; 99284; A4216; A4222; A4618; A7030; C9113; P9047; S0179; J1815; J1940; J2405; J7613